=== PATIENT | male | born 1955 | race Caucasian/White ===

== ENCOUNTER → 2017-09-12 10:33 | Outpatient (CLI) | payer BC, SELFPAY ==
--- NOTE | 2017-09-12 10:44 | XR_ITS ---
XR hand LT min 3V COMPARISON: None HISTORY: Left hand pain TECHNIQUE: AP lateral and oblique views FINDINGS: The distal radius and ulna appear intact though there is mild narrowing of the radiocarpal joint. The carpal bones appear normal. The metacarpals and phalanges all appear intact with no evidence of recent or old fracture. There is minor narrowing of the DIP joints of the fingers.. No erosions are seen. The soft tissues are normal. IMPRESSION: Minor osteoarthritic change radiocarpal joint and the DIP joints of the fingers
== END ==
PROVIDERS: PCP Family Medicine; Visit Provider Family Medicine
DX: M79.642 Pain in left hand (principal)
CPT/HCPCS: 73130

== ENCOUNTER → 2017-09-22 07:22 | Outpatient (CLI) | payer BC, SELFPAY ==
--- NOTE | 2017-09-22 07:25 | NM_ITS ---
History and Indications: Hypertension, hyperlipidemia, tobacco use, family history, shortness of breath and palpitations Procedure: Patient exercised on Bob protocol 8 minutes and 32 seconds, resting heart rate was 49 beats per resting blood pressure 160/85, with exercise maximum heart rate achieved was 1 25 bpm which is equal to 80% of the maximum] heart rate and a blood pressure was 180/90. Test was started due to shortness of breath patient denied any complained of chest pain. Patient has good exercise capacity achieved 10.1mets of workload on treadmill, the blood pressure response to exercise was adequate. Patient did not achieve the target heart rate. Electrocardiogram: Resting electrocardiogram showed sinus bradycardia, with exercise there is less than 1.[address] segment depression noted from the baseline EKG. The EKG portion of the exercise Myoview is nondiagnostic as patient did not achieve the target heart rate. Cardiac stress and resting SPECT images: Cardiac stress and rest SPECT images were obtained using technetium 99 Myoview 31.0 mCi at stress, and 9.9 mCi at rest. Gated SPECT further analysis of segmental wall motion and calculation of the ejection fraction also done. Cardiac stress and rest SPECT images show uniform myocardial activity without any segmental perfusion abnormality, computer derived ejection fraction is 60% with no obvious regional wall motion abnormality, right ventricle is normal size and contractility. Conclusion: 1. The EKG portion of the exercise Myoview is nondiagnostic as patient did not heart rate, patient has good exercise capacity achieved 10.1mets of workload on treadmill, the blood pressure response to exercise was adequate, there was no exercise-induced chest discomfort. 2. No obvious scintigraphic evidence of reversible ischemia seen at this level of exercise, computer derived ejection fraction is 60% with no obvious regional wall motion abnormality, right ventricle is normal size and contractility. Patient did not achieve the target heart rate.
--- NOTE | 2017-09-22 12:30 | HMH.ITSHM ---
metoprolol crestor asa
== END ==
PROVIDERS: Family Provider Family Medicine; PCP Family Medicine; Visit Provider Family Medicine
DX: R07.9 Chest pain, unspecified (principal)
CPT/HCPCS: 78452; 93017; A9502

== ENCOUNTER → 2017-11-24 14:56 | Outpatient (CLI) | payer BC, SELFPAY ==
--- NOTE | 2017-11-24 15:19 | CT_ITS ---
CT lung screening EXAM: CT LUNG LOW DOSE WO CONTRAST HISTORY: 61-year-old male with 45 pack-year smoking history asymptomatic ITS.REASON: H/O NICOTINE DEPENDENCE ORDERING PHYSICIAN: Lyndon Lackey MD PATIENT AGE: 61 years COMPARISON: 11/15/2016 TECHNIQUE: The exam was performed on a GE Light Speed [address] scanner using 2.90 mGy CTDI. A low dose helical CT CHEST was performed on a multi-detector scanner. All CT scans at the facility use one or more dose reduction, viz: automated exposure control; ma/kV adjustment per patient size (including targeted exams where dose is matched to indication; i.e. head); or iterative reconstruction technique. The LDCT was performed in a facility that meets the criteria for the screening program. Data regarding this exam was submitted to ACR which is an approved registry. The order for this exam indicates that it came as a result of a lung cancer screening counseling shard decision-making visit that included all the elements required of such a visit including smoking cessation. The radiologist interpreting this exam meets the CMS criteria for the LDCT lung cancer screening program. The exam is reported using the Lung-RADS classification scale and reported to the ACR registry. NOTE: This study was performed for the specific purposes of lung cancer screening and is not an alternative to diagnostic chest CT. RADIATION DOSE: CTDI vol(CT dose Index-volume) = 2.90mG DLP (Dose Length Product) = 106.17 mGcm FINDINGS: There is a 5 mm nodule left lower lobe posteriorly stable since 11/15/2016. A calcified nodule present in the right lung base medially and there is a calcified 5 mm nodule in the right lung base posteriorly laterally. No additional nodules are evident. No effusions or infiltrates. There are extensive coronary artery calcifications. Calcified nodule present in the left lobe of the thyroid gland measuring 15 mm. A 2 cm soft tissue density is present posterior to the root of the aorta and could be due to small amount fluid within superior pericardial recess similar to an older study of 03/25/2015. There are degenerative changes in the thoracic spine. IMPRESSION: 1. Lung RADS Category: 2, benign 2. Other findings: Severe coronary artery calcifications RECOMMENDATIONS: 12 month LDCT follow-up
== END ==
PROVIDERS: Family Provider Family Medicine; PCP Family Medicine; Visit Provider Family Medicine
DX: Z87.891 Personal history of nicotine dependence (principal); Z12.2 Encounter for screening for malignant neoplasm of respiratory organs

== ENCOUNTER 2018-05-17 09:38 | Outpatient (RCR) | payer BC, SELFPAY | END 2018-06-22 16:39 | disposition home or self-care (01) | LOC: PT 09:38 | PROVIDERS: Visit Provider Physician Assistant | DX: Z95.5 Presence of coronary angioplasty implant and graft (principal); R06.02 Shortness of breath | CPT/HCPCS: 93798 ==

== ENCOUNTER → 2018-06-12 08:23 | Outpatient (CLI) | payer BC, SELFPAY ==
[2018-06-12 09:28] LABS: Alanine Aminotransferase 50 U/L (12-78); Alkaline Phosphatase 80 U/L (46-116); Aspartate Amino Transferase 29 U/L (15-37); Bilirubin,Direct 0.2 mg/dL (0.0-0.2); Bilirubin,Indirect 0.4 mg/dL (0.0-0.9); Bilirubin,Total 0.6 mg/dL (0.2-1.0); Chol/HDL Ratio 3.6 (1-3.5); Cholesterol 159 mg/dL (140-200); HDL Cholesterol 44 mg/dL (27-67); LDL Cholesterol 88 mg/dL (0-130); Total Protein,Serum 6.8 gm/dL (6.4-8.2); Triglycerides 135 mg/dL (30-200); VLDL Cholesterol 27 mg/dL (0-40)
== END ==
PROVIDERS: Visit Provider Internal Medicine
DX: I10 Essential (primary) hypertension (principal); E78.5 Hyperlipidemia, unspecified
CPT/HCPCS: 36415; 80061; 80076

== ENCOUNTER → 2018-10-12 07:56 | Outpatient (CLI) | payer BC, SELFPAY ==
[2018-10-12 09:53] LABS: Alanine Aminotransferase 78 U/L (12-78); Alkaline Phosphatase 105 U/L (46-116); Anion Gap 15.4 mEq/L (5-15); Aspartate Amino Transferase 41 U/L (15-37); Bilirubin,Direct 0.1 mg/dL (0.0-0.2); Bilirubin,Indirect 0.2 mg/dL (0.0-0.9); Bilirubin,Total 0.3 mg/dL (0.2-1.0); Blood Urea Nitrogen 18 mg/dL (7-18); Calcium 9.4 mg/dL (8.5-10.1); Carbon Dioxide 26 mmol/L (21.0-32.0); Chloride 104 mmol/L (98-107); Chol/HDL Ratio 3.9 (1-3.5); Cholesterol 139 mg/dL (140-200); Creatinine,Serum 0.88 mg/dL (0.70-1.30); Estimated Glomerular Filt Rate 87 ml/min (>60); GFR (African American) 105 ML/MIN (>60); Glucose 116 mg/dL (74-106); HDL Cholesterol 36 mg/dL (27-67); LDL Cholesterol 62 mg/dL (0-130); Potassium 4.4 mmoL/L (3.5-5.1); Sodium 141 mmol/L (136-145); Triglycerides 204 mg/dL (30-200); VLDL Cholesterol 41 mg/dL (0-40)
== END ==
PROVIDERS: Visit Provider Internal Medicine Cardiovascular Disease
DX: I10 Essential (primary) hypertension (principal); R00.1 Bradycardia, unspecified
CPT/HCPCS: 36415; 80048; 80061; 80076

== ENCOUNTER → 2018-10-31 08:14 | Outpatient (CLI) | payer BC, SELFPAY ==
--- NOTE | 2018-10-31 08:39 | XR_ITS ---
XR ribs RT 2V HISTORY: ITS.REASON: PLEURIDYNIA, RT RIB PAIN ORDERING PHYSICIAN: LORETA Sebastian PATIENT AGE: 62 years Comparison: None FINDINGS: There is a faint lucency along the anterior aspect of the right seventh rib which could be due to a nondisplaced fracture. No other significant anomalies are evident. IMPRESSION: Possible nondisplaced right seventh rib fracture
--- NOTE | 2018-10-31 08:39 | XR_ITS ---
XR chest 2V HISTORY: ITS.REASON: PLEURIDYNIA, RT RIB PAIN ORDERING PHYSICIAN: LORETA Sebastian PATIENT AGE: 62 years COMPARISON: PA and lateral chest 06/09/2018 FINDINGS: The cardiomediastinal silhouette and pulmonary vascularity are within normal limits. The lungs are clear without infiltrates, suspicious nodules, or pleural effusions. No acute bony abnormalities. IMPRESSION: Negative chest, no acute finding
[2018-10-31 08:57] LABS: Basophils # 0.1 K/mm3 (0-0.2); Eosinophils # 0.2 K/mm3 (0.0-0.4); Hematocrit 44.4 % (42.0-52.0); Lymphocytes # 2.2 K/mm3 (0.7-4.5); Lymphocytes % 39.2 % (10-50); Mean Corpuscular HGB Conc 33.7 g/dL (31.8-35.4); Mean Corpuscular Hemoglobin 31.2 pg (27.0-31.2); Mean Corpuscular Volume 92.5 fl (80-94); Mean Platelet Volume 6.9 fl (7.4-10.4); Monocytes # 0.5 K/mm3 (0.1-1.0); Monocytes % 8.3 % (1.7-9.3); Neutrophils # 2.7 K/mm3 (1.8-7.8); Neutrophils % 48.5 % (37.0-80.0); Platelet Count 264 K/mm3 (142-424); Red Blood Count 4.81 M/mm3 (4.60-6.20); White Blood Count 5.6 K/mm3 (4.8-10.8)
--- NOTE | 2018-10-31 09:00 | XR_ITS ---
XR knee RT 3V HISTORY: ITS.REASON: Right knee pain ORDERING PHYSICIAN: LORETA Sebastian PATIENT AGE: 62 years COMPARISON: None FINDINGS: No fracture or dislocation. No lytic or blastic change. Normal mineralization. No significant arthritic changes evident. No other significant findings IMPRESSION: Negative Knee
[2018-10-31 09:45] LABS: Hemoglobin A1C 5.8 % (0.0-7.0)
[2018-10-31 11:01] LABS: Alanine Aminotransferase 42 U/L (12-78); Albumin Level 3.9 gm/dL (3.4-5.0); Albumin/Globulin Ratio 1.3 (1.1-1.8); Alkaline Phosphatase 75 U/L (46-116); Anion Gap 12.6 mEq/L (5-15); Bilirubin,Total 0.5 mg/dL (0.2-1.0); Blood Urea Nitrogen 19 mg/dL (7-18); Calcium 9.3 mg/dL (8.5-10.1); Carbon Dioxide 28 mmol/L (21.0-32.0); Chloride 103 mmol/L (98-107); Chol/HDL Ratio 3.7 (1-3.5); Cholesterol 121 mg/dL (140-200); Creatinine,Serum 0.99 mg/dL (0.70-1.30); Estimated Glomerular Filt Rate 76 ml/min (>60); GFR (African American) 92 ML/MIN (>60); Glucose 88 mg/dL (74-106); HDL Cholesterol 33 mg/dL (27-67); LDL Cholesterol 64 mg/dL (0-130); Sodium 139 mmol/L (136-145); T4 (Thyroxine) 6.8 ug/dl (4.7-13.3); Thyroid Stimulating Hormone 1.69 uIU/ml (0.358-3.740); Total Protein,Serum 6.9 gm/dL (6.4-8.2); Triglycerides 121 mg/dL (30-200); VLDL Cholesterol 24 mg/dL (0-40)
[2018-10-31 11:45] LABS: Potassium 4.6 mmoL/L (3.5-5.1)
[2018-10-31 11:46] LABS: Aspartate Amino Transferase 26 U/L (15-37)
[2018-11-01 10:07] LABS: PSA, Free 0.28 ng/mL; Prostate Specific Ag 0.8 ng/mL (0.0-4.0); Vitamin D 25 Hydroxy 21.5 ng/mL (30.0-100.0)
== END ==
PROVIDERS: Physician Assistant; Visit Provider Physician Assistant
DX: M25.561 Pain in right knee (principal); R23.8 Other skin changes; E78.2 Mixed hyperlipidemia; R07.81 Pleurodynia
CPT/HCPCS: 36415; 71046; 71100; 73562; 80053; 80061; 82652; 83036; 84153; 84154; 84436; 84443; 85025

== ENCOUNTER → 2018-12-26 08:38 | Outpatient (POV) | payer MEDICARE, BC, SELFPAY | PROVIDERS: Visit Provider Dermatology | DX: Z00.00 Encounter for general adult medical examination without abnormal findings (principal) ==

== ENCOUNTER → 2019-01-11 08:10 | Outpatient (CLI) | payer MEDICARE, SELFPAY ==
[2019-01-11 09:21] LABS: Alanine Aminotransferase 51 U/L (12-78); Albumin Level 3.6 gm/dL (3.4-5.0); Alkaline Phosphatase 74 U/L (46-116); Anion Gap 11.3 mEq/L (5-15); Aspartate Amino Transferase 31 U/L (15-37); Bilirubin,Direct 0.2 mg/dL (0.0-0.2); Bilirubin,Indirect 0.3 mg/dL (0.0-0.9); Bilirubin,Total 0.5 mg/dL (0.2-1.0); Blood Urea Nitrogen 25 mg/dL (7-18); Carbon Dioxide 31 mmol/L (21.0-32.0); Chloride 103 mmol/L (98-107); Chol/HDL Ratio 3.4 (1-3.5); Cholesterol 112 mg/dL (140-200); Creatinine,Serum 1.21 mg/dL (0.70-1.30); Estimated Glomerular Filt Rate 60 ml/min (>60); GFR (African American) 73 ML/MIN (>60); Glucose 99 mg/dL (74-106); HDL Cholesterol 33 mg/dL (27-67); LDL Cholesterol 57 mg/dL (0-130); Potassium 4.3 mmoL/L (3.5-5.1); Sodium 141 mmol/L (136-145); Total Protein,Serum 6.2 gm/dL (6.4-8.2); Triglycerides 111 mg/dL (30-200); VLDL Cholesterol 22 mg/dL (0-40)
== END ==
PROVIDERS: Visit Provider Internal Medicine Cardiovascular Disease
DX: E55.9 Vitamin D deficiency, unspecified (principal); E66.9 Obesity, unspecified; E78.01 Familial hypercholesterolemia; I10 Essential (primary) hypertension; I25.10 Atherosclerotic heart disease of native coronary artery without angina pectoris
CPT/HCPCS: 36415; 80048; 80061; 80076

== ENCOUNTER 2019-09-04 13:42 | Observation (INO) ==
[2019-09-04 14:10] LABS: Basophils # 0.1 K/mm3 (0-0.2); Basophils % 0.9 % (0.1-2.0); Eosinophils # 0.2 K/mm3 (0.0-0.4); Eosinophils % 2.3 % (0.1-12.0); Hematocrit 49.4 % (42.0-52.0); Hemoglobin 16.2 g/dL (14.1-18.0); Lymphocytes # 2.9 K/mm3 (0.7-4.5); Lymphocytes % 43.3 % (10-50); Mean Corpuscular HGB Conc 32.8 g/dL (31.8-35.4); Mean Corpuscular Volume 93.1 fl (80-94); Mean Platelet Volume 7.1 fl (7.4-10.4); Monocytes # 0.8 K/mm3 (0.1-1.0); Monocytes % 11.3 % (1.7-9.3); Neutrophils # 2.8 K/mm3 (1.8-7.8); Neutrophils % 42.3 % (37.0-80.0); Platelet Count 285 K/mm3 (142-424); Red Blood Count 5.31 M/mm3 (4.60-6.20); Red Cell Distribution Width 13.1 % (11.5-17.5); White Blood Count 6.7 K/mm3 (4.8-10.8)
[2019-09-04 14:18] LABS: Calcium 10.4 mg/dl (8.4-10.2)
[2019-09-04 14:45] LABS: Albumin Level 4.5 g/dl (3.5-5.0); Bilirubin,Indirect 0.5 mg/dL (0.0-0.9); Bilirubin,Total 0.5 mg/dl (0.2-1.3); Bilirubin,Unconjugated 0.6 mg/dL (0.0-1.1); Total Protein,Serum 7.3 g/dl (6.3-8.2)
--- NOTE | 2019-09-04 17:18 | Emergency Department Note ---
ED Disposition Clinical Impression: Atypical chest pain Disposition: Admitted as Observation Condition on Discharge: Good Additional Instructions: Spoke to Dr. Fitch and he agreed to put the patient in the hospital and have catheterization tomorrow morning. Spoke with Dr. Borrego and he agreed to admit the patient. Spoke to Dr. Borrego Referrals: Rosi Gaston PA [Primary Care Provider] - - Critical Care Critical Care Time: No Attestation: On 09/04/19, the high probability of a clinically significant, sudden or life threatening deterioration of the following system(s) required my full and direct attention, intervention and personal management. The time I documented below is in addition to time spent performing reported procedures but includes the following listed in this critical care notation. Medical Decision Making - Medical Records Medical records reviewed: Yes: I reviewed the patient's medical records. - Jean Marie Inquiry Pt receiving controlled substance: No Vital Signs: 09/04/19 13:43 09/04/19 14:07 09/04/19 15:08 Temperature 98.3 F Temperature Source Oral Pulse Rate [Left Radial] 49 L 49 L 76 Respiratory Rate 16 18 18 Blood Pressure [Right Arm] 167/94 H 165/90 H 121/83 Blood Pressure Mean [Right Arm] 118 115 95 Blood Pressure Source [Right Arm] Automatic Cuff Blood Pressure Position [Right Arm] Sitting Supine 02 Sat by Pulse Oximetry 98 99 97 Oxygen Delivery Method Room Air 09/04/19 15:54 09/04/19 16:29 09/04/19 16:47 Temperature Temperature Source Pulse Rate [Left Radial] 48 L 50 L 78 Respiratory Rate 18 18 18 Blood Pressure [Right Arm] 118/82 124/78 162/74 H Blood Pressure Mean [Right Arm] 94 93 103 Blood Pressure Source [Right Arm] Automatic Cuff Automatic Cuff Automatic Cuff Blood Pressure Position [Right Arm] Supine Supine Supine 02 Sat by Pulse Oximetry 98 98 99 Oxygen Delivery Method Room Air - Lab Data Lab results reviewed: Yes: I reviewed the patient's lab results. Lab Results 09/04/19 13:54: WBC 6.7, RBC 5.31, Hgb 16.2, Hct 49.4, MCV 93.1, MCH 30.5, MCHC 32.8, RDW 13.1, Plt Count 285, MPV 7.1 L, Neut % (Auto) 42.3, Lymph % (Auto) 43.3, [place] % (Auto) 11.3 H, Eos % (Auto) 2.3, Baso % (Auto) 0.9, Neut # (Auto) 2.8, Lymph # (Auto) 2.9, [place] # (Auto) 0.8, Eos # (Auto) 0.2, Baso # (Auto) 0.1 09/04/19 13:54: Sodium 139, Potassium 4.0, Chloride 103, Carbon Dioxide 27, [place] 13.0, BUN 21 H, Creatinine 0.90, Estimated Creat Clear 99, Estimated GFR 85, Est GFR ( Amer) 102, Glucose 81, Calcium 10.4 H, Troponin I 0.02 09/04/19 13:54: Total Bilirubin 0.5, Direct Bilirubin 0.0, Conjugated Bilirubin 0.0, Indirect Bilirubin 0.5, Unconjugated Bilirubin 0.6, AST 42, ALT 43, Alkaline Phosphatase 76, Total Protein 7.3, Albumin 4.5 09/04/19 16:25: Troponin I 0.15 H Result diagrams: 09/04/19 13:54 09/04/19 13:54 Orders (Tests/Meds): ED MEDICATIONS Generic Name Dose Route Start Last Admin Trade Name Freq PRN Reason Stop Dose Admin Sodium Chloride 8 ml 09/04/19 16:14 09/04/19 16:15 Sodium Chloride 0.9% 10ml Vial IV 10/04/19 16:13 8 ml NEEDED PRN Administration dilute pepcid Discontinued Medications Generic Name Dose Route Start Last Admin Trade Name Freq PRN Reason Stop Dose Admin Aspirin 243 mg 09/04/19 14:06 09/04/19 14:07 Aspirin 81mg Chewable Tablet PO 09/04/19 14:07 243 mg ONCE ONE Administration Famotidine 20 mg 09/04/19 16:14 09/04/19 16:15 Pepcid 20mg/2ml Vial IV 09/04/19 16:15 20 mg ONCE ONE Administration ORDERS Category Date Time Status Troponin I Q3H Lab 09/04/19 20:00 Ordered - Radiology Data #1 Image(s): Chest Preliminary Findings: Normal/NAD - ECG Data Tracing #1 Normal Sinus Rhythm: Yes Medical Decision Narrative: Patient's first troponin was 0.02 the troponin repeated 2 hours later was 0.15. Chest Pain HPI - General Chief Complaint: Chest Pain Stated Complaint: chest pain Time Seen by Provider: 09/04/19 17:00 Mode of Arrival: Ambulatory Source of Information: Patient Limitations: No Limitations Description of Symptoms (Recalled from ER Triage Doc. by RN): to ed per pvt car with c/o chest pain radiating lt arm and tightness in neck. +diaphoresis, +nausea. pt states he was walking around [employer] when pain started 20 mins ago. cpta asa 81mg - History of Present Illness HPI narrative: 63-year-old gentleman comes in complaining of substernal chest pain. He states the pain started yesterday then went away and then it started about 45 minutes to presentation here in the ED. He describes the pain almost as a burning/pressure sensation. He rates his pain 3 out of 10. He denies any radiation or shortness of breath. He also denies any diaphoresis. He states alleviating factors are fluids and exacerbating factors are movement. He does have hypertension and hyperlipidemia. He also has known coronary artery disease. He did have 3 stents placed in April 2018. Dr. Fitch did his catheterization. Patient denies any cough. Patient also denies any fevers. - Related Data Home Medications Medication Instructions Recorded Confirmed aspirin 81 mg tablet,delayed 81 mg PO DAILY 05/11/18 09/04/19 release Clopidogrel Bisulfate [Plavix 75mg 75 mg PO DAILY 09/04/19 09/04/19 Tab] Ezetimibe See Rx Instructions .ROUTE .COMPLEX 09/04/19 09/04/19 Losartan/Hydrochlorothiazide 1 tab PO DAILY 09/04/19 09/04/19 [Hyzaar 100-25 Tablet] Metoprolol Succinate 50 mg PO DAILY 09/04/19 09/04/19 Rosuvastatin Calcium 20 mg PO DAILY 09/04/19 09/04/19 Previous Rx's Medication Instructions Recorded fenofibric acid (choline) 45 mg 45 mg PO DAILY #90 cap 03/14/19 capsule,delayed release Allergies Allergy/AdvReac Type Severity Reaction Status Date / Time No Known Allergies Allergy Verified 06/14/19 09:50 [facility] History - Hepatitis A Screen Drug use history?: No High risk sexual behaviors?: No History of sexually transmitted infection?: No Currently employed?: No Childcare worker?: No Do you have indoor plumbing?: Yes Do you have electricity?: Yes Attestation statement:: This patient has been screened for Hepatitis A risk factors. I have reviewed the patient's past medical history: Yes Medical History: Reports:: Coronary Artery Disease, Hyperlipidemia, Hypertension Denies:: Cancer, Diabetes Mellitus Type 1, Diabetes Mellitus Type 2, Internal Pacemaker, MRSA, Seizures Laterality Cases: Bilateral: Tonsillectomy Other Surgeries: Yes: Cardiac Catheterization, Coronary Stent. No: Pacemaker Amputation: No Fractures: No - Social History Smoking Status: Former smoker Tobacco Type: cigarettes Alcohol Intake: never Alcohol Intake Frequency:: 3 or more drinks per day Substance Use Type: denies use Occupational Status: other Housing: house Household Members: spouse Family Hx:: Coronary Artery Disease, Heart Attack, Cancer, Hypertension Comment: Father-CAD/CABG@40's. Mother-HTN,HLD, LUNG CANCER. Brother- of [place] at 52. All Siblings have CAD ROS Obtained: Yes All systems reviewed & no additional complaints - Constitutional Constitutional: Reports system reviewed and no additional complaints, except as docu - Eyes Eyes: Reports system reviewed and no additional complaints, except as docu, Denies blind spots - ENT Ears, Nose, Mouth, and Throat: Reports system reviewed and no additional complaints, except as docu - Cardiovascular Cardiovascular: Reports system reviewed and no additional complaints, except as docu - Respiratory Respiratory: Yes system reviewed and no additional complaints, except as docu - Gastrointestinal Gastrointestingal: Reports: system reviewed and no additional complaints, except as docu - Genitourinary Male Genitourinary: Reports system reviewed and no additional complaints, except as docu Female Genitourinary: Reports system reviewed and no additional complaints, except as docu - Musculoskeletal Musculoskeletal: Reports system reviewed and no additional complaints, except as docu - Integumentary/Breasts Skin/Breast: Reports system reviewed and no additional complaints, except as docu - Neurologic Neurologic: Reports system reviewed and no additional complaints, except as docu - Endocrine Endocrine: Reports system reviewed and no additional complaints, except as docu - Hematologic/Lymphatic Henatologic/Lymphatic: Reports system reviewed and no additional complaints, except as docu - Allergic/Immunologic Allergic/Immunologic: Reports system reviewed and no additional complaints, except as docu Physical Exam - General General appearance: alert, in no apparent distress - Head Head exam: atraumatic, normocephalic - Eye Eye exam: Present: normal appearance, PERRL - ENT ENT exam: Present: normal exam - Neck Neck exam: Present: normal inspection - Chest Chest inspection: Present: normal inspection - Respiratory Respiratory exam: Present: normal lung sounds bilaterally - Cardiovascular Cardiovascular exam: Present: regular rate, normal rhythm - Abdominal Exam Abdominal exam: Present: soft - Extremities Exam Extremities exam: Present: normal inspection - Back Exam Back exam: Present: normal inspection - Neurological Exam Neurological exam: Present: alert, oriented X3 - Psychiatric Psychiatric exam: Present: normal affect - Skin Skin exam: Present: warm - Lymphatic Lymphatic Findings: no adenopathy
--- NOTE | 2019-09-04 21:25 | History & Physical Report ---
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 +d iaphoresis, +nausea. pt states he was walking around [employer] when pain started 20 mins ago. 63-year-old gentleman comes in complaining of substernal chest pain. He states the pain started yesterday then went away and then it started about 45 minutes to presentation here in the ED. He describes the pain almost as a burning/pressure sensation. He rates his pain 3 out of 10. He denies any radia tion or shortness of breath. He also denies any diaphoresis. He states alleviating factors are fluids and exacerbating factors are movement. He does have hypertension and hyperlipidemia. He also has known coronary artery disease. He did have 3 stents placed in April 2018. Dr. Fitch did his catheterization. Patient denies any cough. Patient also denies any fevers. pt was admitted for [facility] History I have reviewed the patient's past medical history: Yes Medical History: Reports:: Cancer ([employer] [place] [id number]), Coronary Artery Disease, Hyperlipidemia, Hypertension Denies:: Diabetes Mellitus Type 1, Diabetes Mellitus Type 2, Internal Pacemaker, MRSA, Seizures *Have you ever received a pneumonia vaccine?: No *Have you received a flu vaccine this season?: Yes Other Medical History: Reports: Sinus Problems Laterality Cases: Bilateral: Tonsillectomy, Other Other Surgeries: Yes: Cardiac Catheterization, Colonoscopy, Coronary Stent, Skin Cancer Excision. No: Pacemaker Amputation: No Fractures: No - *Social History Smoking Status: Former smoker Tobacco Type: cigarettes Alcohol Intake: current Alcohol Intake Frequency:: a few times a week Substance Use Type: denies use *Occupational Status:: employed Housing: house Household Members: spouse *Travel in the last 8 weeks: None Family Hx:: Cancer, Coronary Artery Disease, Hyperlipidemia, Hypertension Review of Systems - Review of Systems Review of systems:: pertinent systems reviewed and negative unless documented below - Constitutional Denies headache(s) - Eyes Denies change in vision - ENT Denies sore throat - *Cardiovascular Reports chest pain at rest, Reports radiating jaw, neck or arm pain - *Respiratory Denies cough - *Gastrointestinal Denies abdominal pain - *Genitourinary Denies blood in urine - *Musculoskeletal Denies joint pain - Integumentary/Breasts Denies rash - *Neurologic Denies seizure-like activity - Psychiatric Denies irritability Meds Home Medications Medication Instructions Recorded Confirmed Type aspirin 81 mg tablet,delayed 81 mg PO DAILY 05/11/18 09/04/19 History release fenofibric acid (choline) 45 mg 45 mg PO DAILY #90 cap 03/14/19 09/04/19 Rx capsule,delayed release Clopidogrel Bisulfate [Plavix 75mg 75 mg PO DAILY 09/04/19 09/04/19 History Tab] Ezetimibe 10 mg PO DAILY 09/04/19 09/05/19 History Losartan/Hydrochlorothiazide 1 tab PO DAILY 09/04/19 09/05/19 History [Hyzaar 100-25 Tablet] Metoprolol Succinate 50 mg PO DAILY 09/04/19 09/04/19 History Rosuvastatin Calcium 20 mg PO DAILY 09/04/19 09/04/19 History Allergies Allergy/AdvReac Type Severity Reaction Status Date / Time No Known Allergies Allergy Verified 06/14/19 09:50 Exam Vital signs and Labs for Last 24 Hours: Temp Pulse Resp BP Pulse Ox 97.7 F 50 L 16 136/70 97 09/04/19 19:20 09/04/19 19:20 09/04/19 19:20 09/04/19 19:20 09/04/19 19:20 Laboratory Results - last 24 hr 09/04/19 13:54: WBC 6.7, RBC 5.31, Hgb 16.2, Hct 49.4, MCV 93.1, MCH 30.5, MCHC 32.8, RDW 13.1, Plt Count 285, MPV 7.1 L, Neut % (Auto) 42.3, Lymph % (Auto) 43.3, [place] % (Auto) 11.3 H, Eos % (Auto) 2.3, Baso % (Auto) 0.9, Neut # (Auto) 2.8, Lymph # (Auto) 2.9, [place] # (Auto) 0.8, Eos # (Auto) 0.2, Baso # (Auto) 0.1 09/04/19 13:54: Sodium 139, Potassium 4.0, Chloride 103, Carbon Dioxide 27, Anion Gap 13.0, BUN 21 H, Creatinine 0.90, Estimated Creat Clear 99, Estimated GFR 85, Est GFR ( Amer) 102, Glucose 81, Calcium 10.4 H, Troponin I 0.02 09/04/19 13:54: Total Bilirubin 0.5, Direct Bilirubin 0.0, Conjugated Bilirubin 0.0, Indirect Bilirubin 0.5, Unconjugated Bilirubin 0.6, AST 42, ALT 43, [place]kal ine Phosphatase 76, Total Protein 7.3, Albumin 4.5 09/04/19 16:25: Troponin I 0.15 H I & O for Last 24 hours: Intake & Output 09/02/19 09/03/19 09/04/19 09/05/19 11:59 11:59 11:59 11:59 Weight 217 lb 3 oz - Constitutional no acute distress, obese - *Routine HEENT Exam Head: Present: normocephalic Eye: Present: EOMI, PERRL ENT: Present: mucous membranes dry - *Routine Neck Exam Present: supple - *Routine Respiratory Exam Present: CTA bilaterally - *Routine Cardiovascular Exam Present: RRR, murmur - *Routine Abdominal Exam Present: soft - *Routine Skin Exam Present: intact - *Routine Neurological Exam Present: alert, oriented X3, CN II-XII intact - Routine Psychiatric Exam Present: normal affect Assessment and Plan (1) Chest pain Current visit: No Status: Acute Qualifiers: Chest pain type: precordial pain Qualified Code(s): R07.2 - Precordial pain Category: Medical Code(s): R07.9 - Chest pain, unspecified (2) Obesity (BMI 30.0-34.9) Current visit: No Status: Acute Category: Medical Code(s): E66.9 - Obesity, unspecified (3) CAD (coronary artery disease) Current visit: No Status: Chronic Qualifiers: Coronary Disease-Associated Artery/Lesion type: [place] artery [place] vs. transplanted heart: [place] heart Associated angina: without angina Qualified Code(s): I25.10 - Atherosclerotic heart disease of [place] coronary artery without angina pectoris Category: Medical Code(s): I25.10 - Atherosclerotic heart disease of [place] coronary artery without angina pectoris
--- NOTE | 2019-09-05 07:52 | Pharmacy Consult Notes ---
[facility] Pharmacy VTE Monitoring - Patient Demographics Admission date: 09/04/19 Report Date: 09/05/19 Time: 07:52 Allergies/Adverse Reactions: Patient Allergies No Known Allergies Allergy (Verified 06/14/19 09:50) Height: 1.8 m Weight: 97.692 kg Patient Problems: Current Active Problems Atypical chest pain (Acute) - VTE Risk Labs: VTE Related Lab Results Hgb 16.2 g/dL (14.1-18.0) 09/04/19 13:54 Hct 49.4 % (42.0-52.0) 09/04/19 13:54 Plt Count 285 K/mm3 (142-424) 09/04/19 13:54 BUN 21 mg/dl (9-20) H 09/04/19 13:54 Creatinine 0.90 mg/dl (0.66-1.25) 09/04/19 13:54 Estimated Creat Clear 99 mL/min (50-200) 09/04/19 13:54 Was VTE Risk Assessment Performed: Yes VTE Score: 3 VTE Risk Level: Low Risk Clinical Trial Participant: No - Prophylaxis VTE Prophylaxis Ordered?: Yes Types of VTE Prophylaxis: TEDS Knee High
--- NOTE | 2019-09-05 08:15 | Cardiology Report ---
APPROVED REPORT EXAM: Comprehensive 2D, Doppler, and color-flow Echocardiogram Office Assistant: Amber Shah CRT Ht: 5 ft 11 in Wt: 217lbs BSA: 2.18 BP: 136/70 mmHg Indications: Hyperlipidemia, Hypertension/HDD stents 2D Dimensions LVOT 2.06 cm (M/F) 1.5-2.5 M-Mode Dimensions RVDd 3.14 cm (0.9-2.6)LVDd 4.66 cm (3.5-5.7) LVDs 2.74 cm (3.5-5.7)IVSd 1.52 cm (0.6-1.1) PWd 0.87 cm (0.6-1.1)EF (Teich) 72.10% FS 41.20% EDV (Teich) 100.30 mL ESV (Teich) 28.00 mL LV Diastology E/A Ratio 1.13 Mitral Valve MV A Velocity 55.00 (40-130 cm/s) Left Ventricle Left atrium is mildly enlarged, left ventricle is normal size, mild concentric left ventricular hypertrophy, visually estimated ejection fraction 55% with no regional wall motion abnormality, endocardial surfaces are poorly visualized, diastolic parameters are inconclusive. Right Ventricle Right atrium is normal size, right ventricle is mildly enlarged with normal contractility. Aortic Valve Aortic valve is minimally thickened and fibrosed, there is no aortic stenosis or aortic insufficiency. Mitral Valve Mitral valve is grossly normal, there is mild mitral regurgitation. Tricuspid Valve Tricuspid valve is grossly normal, there is mild tricuspid regurgitation. Tricuspid regurgitation jet velocity is inadequate for calculation of the right ventricular systolic pressure. Pulmonic Valve Pulmonic valve is poorly visualized. Great Vessels Aortic root is normal size. Pericardium No significant pericardial effusion noted. Conclusion 1. Mildly enlarged left atrium, normal left ventricular size, mild concentric left ventricular hypertrophy, visually estimated ejection fraction 55% with no regional wall motion abnormality, diastolic parameters are inconclusive. Endocardial surfaces are poorly visualized. 2. Mildly enlarged right ventricle with normal contractility. 3. Mild mitral and tricuspid regurgitation. 4. No significant pericardial effusion noted. Electronically signed by : Brad Gauthier, 09/05/2019 08:14:38
--- NOTE | 2019-09-05 09:13 | Consult Report ---
History of Present Illness Consult date: 09/05/19 Requesting physician: Landen Borrego Consult reason: chest pain Chief complaint: chest pain Additional Medical History:: 1. CAD 2. HTN 3. HLD History of present illness: This is a 63-year-old white gentleman who presented to the emergency department with complaints of chest pain. He states that he was walking around [facility], [place] yesterday when he had sudden onset of substernal chest pain. He describes this as a pressure sensation that radiated up to his neck and down his left arm. He denies any associated shortness of breath. However he did have associated diaph oresis and nausea but no vomiting. The patient states the pain persisted for approximately 20 minutes and then he decided to come to the emergency department. The patient states that the pain was severe and nothing was helping to improve the pain. He states that he felt like something was really wrong and that is why he came to the emergency department. Patient has known coronary artery disease with stenting in 2018. He also has known hypertension and hyperlipidemia. He denies any shortness of breath, edema, fever, chills, vomiting, diarrhea, PND or orthopnea. He denies any cough or fevers. He denies any flulike symptoms. The patient was admitted to the hospital as he did have a bump in his troponin consistent with a non-ST elevation myocardial infarction. The patient is bradycardic this morning. He states that he is always bradycardic since 2018. He states his heart rate is usually anywhere from 41 to 48 bpm. He denies any syncope. [facility] History I have reviewed the patient's past medical history: Yes Medical History: Reports:: Cancer ([employer] [id number]), Coronary Artery Disease, Hyperlipidemia, Hypertension Denies:: Diabetes Mellitus Type 1, Diabetes Mellitus Type 2, Internal Pacemaker, MRSA, Seizures *Have you ever received a pneumonia vaccine?: No *Have you received a flu vaccine this season?: Yes Other Medical History: Reports: Sinus Problems Laterality Cases: Bilateral: Tonsillectomy, Other Other Surgeries: Yes: Cardiac Catheterization, Colonoscopy, Coronary Stent, Skin Cancer Excision. No: Pacemaker Amputation: No Fractures: No - *Social History Smoking Status: Former smoker Tobacco Type: cigarettes Alcohol Intake: current Alcohol Intake Frequency:: a few times a week Substance Use Type: denies use *Occupational Status:: employed Housing: house Household Members: spouse *Travel in the last 8 weeks: None Family Hx:: Cancer, Coronary Artery Disease, Hyperlipidemia, Hypertension Meds Home Medications Medication Instructions Recorded Confirmed Type aspirin 81 mg tablet,delayed 81 mg PO DAILY 05/11/18 09/04/19 History release fenofibric acid (choline) 45 mg 45 mg PO DAILY #90 cap 03/14/19 09/04/19 Rx capsule,delayed release Clopidogrel Bisulfate [Plavix 75mg 75 mg PO DAILY 09/04/19 09/04/19 History Tab] Ezetimibe 10 mg PO DAILY 09/04/19 09/05/19 History Losartan/Hydrochlorothiazide 1 tab PO DAILY 09/04/19 09/05/19 History [Hyzaar 100-25 Tablet] Metoprolol Succinate 50 mg PO DAILY 09/04/19 09/04/19 History Rosuvastatin Calcium 20 mg PO DAILY 09/04/19 09/04/19 History Allergies Allergy/AdvReac Type Severity Reaction Status Date / Time No Known Allergies Allergy Verified 06/14/19 09:50 Review of Systems - Review of Systems Review of systems:: pertinent systems reviewed and negative unless documented below - *Cardiovascular Reports chest pain, Reports chest pain at rest, Reports chest pain with activity, Reports radiating jaw, neck or arm pain - *Gastrointestinal Reports nausea - *Neurologic Denies headache(s), Denies seizure-like activity Exam Vital signs and Labs for Last 24 Hours: Temp Pulse Resp BP Pulse Ox 97.9 F 50 L 16 141/79 H 99 09/05/19 08:00 09/05/19 08:00 09/05/19 08:00 09/05/19 08:00 09/05/19 08:00 Laboratory Results - last 24 hr 09/04/19 13:54: WBC 6.7, RBC 5.31, Hgb 16.2, Hct 49.4, MCV 93.1, MCH 30.5, MCHC 32.8, RDW 13.1, Plt Count 285, MPV 7.1 L, Neut % (Auto) 42.3, Lymph % (Auto) 43.3, [place] % (Auto) 11.3 H, Eos % (Auto) 2.3, Baso % (Auto) 0.9, Neut # (Auto) 2.8, Lymph # (Auto) 2.9, [place] # (Auto) 0.8, Eos # (Auto) 0.2, Baso # (Auto) 0.1 09/04/19 13:54: Sodium 139, Potassium 4.0, Chloride 103, Carbon Dioxide 27, Anion Gap 13.0, BUN 21 H, Creatinine 0.90, Estimated Creat Clear 99, Estimated GFR 85, Est GFR ( Amer) 102, Glucose 81, Calcium 10.4 H, Troponin I 0.02 09/04/19 13:54: Total Bilirubin 0.5, Direct Bilirubin 0.0, Conjugated Bilirubin 0.0, Indirect Bilirubin 0.5, Unconjugated Bilirubin 0.6, AST 42, ALT 43, Alkaline Phosphatase 76, Total Protein 7.3, Albumin 4.5 09/04/19 16:25: Troponin I 0.15 H I & O for Last 24 hours: Intake & Output 09/02/19 09/03/19 09/04/19 09/05/19 23:59 23:59 23:59 23:59 Intake Total 0 / 0 Balance 0 / 0 Weight 217 lb 3 oz 215 lb 6 oz Radiology Reports for the Last 24 Hours: Echo shows: 1. Mildly enlarged left atrium, normal left ventricular size, mild concentric left ventricular hypertrophy, visually estimated ejection fraction 55% with no regional wall motion abnormality, diastolic parameters are inconclusive. Endocardial surfaces are poorly visualized. 2. Mildly enlarged right ventricle with normal contractility. 3. Mild mitral and tricuspid regurgitation. 4. No significant pericardial effusion noted. Narrative: KG is sinus rhythm with a rate of 47. - Constitutional no acute distress, obese - *Routine HEENT Exam Head: Present: normocephalic, atraumatic Eye: Present: EOMI, PERRL ENT: Present: mucous membranes moist - *Routine Neck Exam Present: supple, full ROM, normal carotid upstroke. Absent: JVD, carotid bruit, lymphadenopathy - *Routine Respiratory Exam Present: CTA bilaterally - *Routine Cardiovascular Exam Present: Normal S1, Normal S2, bradycardia. Absent: murmur - *Routine Abdominal Exam Present: soft, normoactive bowel sounds. Absent: tenderness, distended, rebound - *Routine Extremities Exam Present: full ROM, pulses intact, normal capillary refill. Absent: cyanosis, clubbing, edema - *Routine Skin Exam Present: intact, warm. Absent: erythema, rash - *Routine Neurological Exam Present: alert, oriented X3, CN II-XII intact. Absent: sensory deficit, motor deficit - Routine Psychiatric Exam Present: normal affect, normal thought process Assessment and Plan (1) Non-ST elevation myocardial infarction (NSTEMI) Current visit: Yes Status: Acute Category: Medical Code(s): I21.4 - Non-ST elevation (NSTEMI) myocardial infarction (2) Unstable angina Current visit: Yes Status: Acute Category: Medical Code(s): I20.0 - Unstable angina (3) CAD (coronary artery disease) Current visit: No Status: Chronic Qualifiers: Coronary Disease-Associated Artery/Lesion type: [place] artery [place] vs. transplanted heart: [place] heart Associated angina: without angina Qualified Code(s): I25.10 - Atherosclerotic heart disease of [place] coronary artery without angina pectoris Category: Medical Code(s): I25.10 - Atherosclerotic heart disease of [place] coronary artery without angina pectoris (4) Obesity (BMI 30.0-34.9) Current visit: No Status: Chronic Category: Medical Code(s): E66.9 - Obesity, unspecified (5) Bradycardia Current visit: No Status: Chronic Category: Medical Code(s): R00.1 - Bradycardia, unspecified (6) Hyperlipidemia Current visit: No Status: Chronic Qualifiers: Hyperlipidemia type: familial hypercholesterolemia Qualified Code(s): E78.01 - Familial hypercholesterolemia Category: Medical Code(s): E78.5 - Hyperlipidemia, unspecified (7) Hypertension Current visit: No Status: Chronic Qualifiers: Hypertension type: essential hypertension Qualified Code(s): I10 - Essential (primary) hypertension Category: Medical Code(s): I10 - Essential (primary) hypertension - Assessment and plan all Dx Assessment and Plan for all problems:: Plan: 1. Patient mated to the hospital secondary to chest pain. He does have symptoms consistent with unstable angina. The patient does have an elevated troponin consistent with a non-ST elevation myocardial infarction. The patient will undergo left cardiac catheterization today to evaluate his coronary artery disease due to the non-ST elevation myocardial infarction and unstable angina. The patient does have known coronary artery disease with stenting in 2018. 2. The patient has been educated on risks benefits of proceeding with left cardiac catheterization. The patient verbalized understanding and is agreeable in proceeding with the procedure. 3. The patient will remain n.p.o. in preparation for left cardiac catheterization. 4. The patient will get IV fluids and premedications prior to the procedure. 5. Coronary artery disease is present. 6. His blood pressure is well controlled. 7. His LDL goal is less than 55. will get a lipid panel today. 8. The patient is bradycardic. He states that he has been bradycardic since 2018 with his heart rate running anywhere from 41 to 48 bpm. He denies any dizziness or syncope. He takes metoprolol succinate 25 mg p.o. twice daily. Will change metoprolol succinate 25 mg p.o. daily to help with his bradycardia. 9. Further recommendations were made pending patient's response to treatment and the results of his left cardiac catheterization later today. Thank you for the opportunity to participate in the care of this patient.
[2019-09-05 10:11] LABS: Chol/HDL Ratio 4.3 (1-3.5)
--- NOTE | 2019-09-05 18:36 | Progress Note ---
Internal Medicine - PN: Subj *Date: 09/05/19 *Time: 08:30 Interval history: pt states no cp at this time Exam Vital signs and Labs for Last 24 Hours: Temp Pulse Resp BP Pulse Ox 97.9 F 50 L 16 122/77 98 09/05/19 08:00 09/05/19 16:00 09/05/19 12:20 09/05/19 13:20 09/05/19 13:20 Laboratory Results - last 24 hr 09/05/19 09:47: Triglycerides 77, Cholesterol 169, LDL Cholesterol Direct 121.10, VLDL Cholesterol 15, HDL Cholesterol 39 L, Cholesterol/HDL Ratio 4.3 H I & O for Last 24 hours: Intake & Output 09/03/19 09/04/19 09/05/19 09/06/19 11:59 11:59 11:59 11:59 Intake Total 0 / 0 1840 / 1840 Balance 0 / 0 1840 / 1840 Weight 215 lb 6 oz - Constitutional no acute distress - *Routine HEENT Exam Head: Present: normocephalic Eye: Present: PERRL ENT: Present: mucous membranes moist - *Routine Neck Exam Present: supple. Absent: lymphadenopathy - *Routine Respiratory Exam Present: CTA bilaterally - *Routine Cardiovascular Exam Present: RRR - *Routine Abdominal Exam Present: soft, normoactive bowel sounds. Absent: tenderness - *Routine Extremities Exam Present: full ROM. Absent: cyanosis, clubbing, edema - *Routine Skin Exam Present: warm. Absent: rash - *Routine Neurological Exam Present: alert, oriented X3 - Routine Psychiatric Exam Present: normal affect Assessment and Plan (1) Non-ST elevation myocardial infarction (NSTEMI) Current visit: Yes Status: Acute Category: Medical Code(s): I21.4 - Non-ST elevation (NSTEMI) myocardial infarction (2) Unstable angina Current visit: Yes Status: Acute Category: Medical Code(s): I20.0 - Unstable angina (3) CAD (coronary artery disease) Current visit: No Status: Chronic Qualifiers: Coronary Disease-Associated Artery/Lesion type: [place] artery [place] vs. transplanted heart: [place] heart Associated angina: without angina Qualified Code(s): I25.10 - Atherosclerotic heart disease of [place] coronary artery without angina pectoris Category: Medical Code(s): I25.10 - Atherosclerotic heart disease of [place] coronary artery without angina pectoris (4) Obesity (BMI 30.0-34.9) Current visit: No Status: Chronic Category: Medical Code(s): E66.9 - Obesity, unspecified (5) Bradycardia Current visit: No Status: Chronic Category: Medical Code(s): R00.1 - Bra dycardia, unspecified (6) Hyperlipidemia Current visit: No Status: Chronic Qualifiers: Hyperlipidemia type: familial hypercholesterolemia Qualified Code(s): E78.01 - Familial hypercholesterolemia Category: Medical Code(s): E78.5 - Hyperlipidemia, unspecified (7) Hypertension Current visit: No Status: Chronic Qualifiers: Hypertension type: essential hypertension Qualified Code(s): I10 - Essential (primary) hypertension Category: Medical Code(s): I10 - Essential (primary) hypertension - Assessment and plan all Dx Assessment and Plan for all problems:: rounded with dr berumen all orders per dr berumen cath today poss dc later
--- NOTE | 2019-09-05 21:38 | Electrocardiograph Report ---
APPROVED REPORT Exam: Resting ECG HR:47 bpm ECG Measurements Heart Rate 47 AXES SD 174 P 68 QRSd 88 QRS 72 QT 468 T72 QTc 414 <Conclusion> Marked sinus bradycardia Abnormal ECG Electronically signed by : Hebert Knox, 09/05/2019 21:38:25
--- NOTE | 2019-09-06 07:45 | Progress Note ---
Subjective Date: 09/06/19 Time: 07:44 Principal diagnosis: NSTEMI Interval history: 63-year-old white male in bed in no acute distress. Denies any chest pain overnight. Patient's cath results reviewed with explanation regarding no need for intervention at this time. Recommend continuing both aspirin and Plavix for 1 year due to elevated troponins. Patient relates increased alcohol use recently up to 10 beers per day until last 2 weeks. Advised moderation. Exam Vital signs and Labs for Last 24 Hours: Temp Pulse Resp BP Pulse Ox 97.5 F L 50 L 16 102/61 L 100 09/06/19 04:00 09/06/19 04:00 09/06/19 04:00 09/06/19 04:00 09/06/19 04:00 Laboratory Results - last 24 hr 09/05/19 09:47: Triglycerides 77, Cholesterol 169, LDL Cholesterol Direct 121.10, VLDL Cholesterol 15, HDL Cholesterol 39 L, Cholesterol/HDL Ratio 4.3 H I & O for Last 24 hours: Intake & Output 09/03/19 09/04/19 09/05/19 09/06/19 11:59 11:59 11:59 11:59 Intake Total 0 / 0 1840 / 1840 Balance 0 / 0 1840 / 1840 Weight 215 lb 6 oz 218 lb 1 oz - *Routine HEENT Exam Head: Present: normocephalic Eye: Present: EOMI, PERRL ENT: Present: mucous membranes moist - *Routine Respiratory Exam Present: CTA bilaterally. Absent: accessory muscle use, rales, rhonchi, wheezes - *Routine Cardiovascular Exam Present: RRR. Absent: murmur, gallop, rubs - *Routine Abdominal Exam Present: soft. Absent: tenderness, distended, guarding - *Routine Extremities Exam Absent: edema, calf tenderness - *Routine Neurological Exam Present: alert, oriented X3, moving all extremities Progress Note: A&P (1) Non-ST elevation myocardial infarction (NSTEMI) Status: Acute Current Visit: Yes (2) Unstable angina Status: Acute Current Visit: Yes (3) CAD (coronary artery disease) Status: Chronic Current Visit: No (4) Obesity (BMI 30.0-34.9) Status: Chronic Current Visit: No (5) Bradycardia Status: Chronic Current Visit: No (6) Hyperlipidemia Status: Chronic Current Visit: No (7) Hypertension Status: Chronic Current Visit: No (8) Diastolic dysfunction Status: Acute Current Visit: Yes Assessment and Plan for All Diagnoses:: 1. Stable from a cardiovascular standpoint for discharge home with medication changes as noted below. Recommend follow-up in our office in 1 to 2 weeks with BMP and BNP on the day of follow-up. 2. Home medications to include aspirin 81 mg daily, Plavix 75 mg daily, metoprolol succinate 25 mg daily, fenofibric acid 45 mg daily, Crestor 20 mg daily, Zetia 10 mg daily. Will discontinue losartan HCTZ and switch to losartan 50 mg daily along with Lasix 40 mg daily and Aldactone 25 mg daily due to diastolic dysfunction with elevated LVEDP of 20-25 mm Hg. No CHF on CXR.
--- NOTE | 2019-09-06 09:30 | Discharge Summary ---
General - General Admission date:: 09/04/19 Discharge date: 09/06/19 HPI HPI: this wm presented to the ed with ant chest pain with rad to neck - has had episode day block captain and worse episode day of admit - pt has known heart dis o ed per pvt car with c/o chest pain radiating lt arm and tightness in neck. +diaphoresis, +nausea. pt states he was walking around [employer] when pain started 20 mins ago. 63-year-old gentleman comes in complaining of substernal chest pain. He states the pain started yesterday then went away and then it started about 45 minutes to presentation here in the ED. He describes the pain almost as a burning/pressure sensation. He rates his pain 3 out of 10. He denies any radiation or shortness of breath. He also denies any diaphoresis. He states alleviating factors are fluids and exacerbating factors are movement. He does have hypertension and hyperlipidemia. He also has known coronary artery disease. He did have 3 stents placed in April 2018. Dr. Fitch did his catheterization. Patient denies any cough. Patient also denies any fevers. pt was admitted for [facility] Course Hospital Course: pt has did well with elevated card enz - pt was seen bty card -his is a 63-year-old white gentleman who presented to the emergency department with complaints of chest pain. He states that he was walking around [employer] yesterday when he had sudden onset of substernal chest pain. He describes this as a pressure sensation that radiated up to his neck and down his left arm. He denies any associated shortness of breath. However he did have associated diaphoresis and nausea but no vomiting. The patient states the pain persisted for approximately 20 minutes and then he decided to come to the emergency department. The patient states that the pain was severe and nothing was helping to improve the pain. He states that he felt like something was really wrong and that is why he came to the emergency department. Patient has known coronary artery disease with stenting in 2018. He also has known hypertension and hyperlipidemia. He denies any shortness of breath, edema, fever, chills, vomiting, diarrhea, PND or orthopnea. He denies any cough or fevers. He denies any flulike symptoms. The patient was admitted to the hospital as he did have a bump in his troponin consistent with a non-ST elevation myocardial infarction. The patient is bradycardic this morning. He states that he is always bradycardic since 2018. He states his heart rate is usually anywhere from 41 to 48 bpm. He denies any syncope. pt had card cath-HC shows: The left main artery Normal The left anterior descending artery Has an ostial 10 to 20% stenosis followed by a proximal stent which extends throughout the proximal and mid segment in a contiguous manner. The stent has mild in-stent restenosis with excellent proximal and distal transitioning. The circumflex artery Is a codominant vessel and has an ostial smooth 20 to 30% stenosis. The main circumflex artery has mild luminal irregularities while the first obtuse marginal artery has an ostial 40 to 50% stenosis followed by a proximal to mid vessel stent which is widely patent with mild in-stent restenosis The right coronary artery Is a codominant vessel and has proximal to mid vessel 30% stenoses with distal 30% stenoses The HIDALGO ventriculogram reveals Normal 60-65% The left ventricular end-diastolic pressure 20 to 25 mmHg IMPRESSION Coronary disease as described above Elevated EDP consistent with diastolic dysfunction Normal ejection fraction PLAN 1. Medical management Stable from a cardiovascular standpoint for discharge home with medication changes as noted below. Recommend follow-up in our office in 1 to 2 weeks with BMP and BNP on the day of follow-up. 2. Home medications to include aspirin 81 mg daily, Plavix 75 mg daily, metoprolol succinate 25 mg daily, fenofibric acid 45 mg daily, Crestor 20 mg daily, Zetia 10 mg daily. Will discontinue losartan HCTZ and switch to losartan 50 mg daily along with Lasix 40 mg daily and Aldactone 25 mg daily due to diastolic dysfunction with elevated LVEDP of 20-25 mm Hg. No CHF on CXR. pt will see card and pcp for follow up Objective Vital signs: Temp Pulse Resp BP Pulse Ox 98.0 F 51 L 18 119/79 98 09/06/19 08:00 09/06/19 08:00 09/06/19 08:00 09/06/19 08:00 09/06/19 08:00 no acute distress, obese - *Routine HEENT Exam Head: Present: normocephalic Eye: Present: EOMI, PERRL ENT: Present: mucous membranes moist - *Routine Neck Exam Present: supple. Absent: JVD - *Routine Respiratory Exam Present: CTA bilaterally - *Routine Cardiovascular Exam Present: RRR, murmur - *Routine Abdominal Exam Present: soft - *Routine Extremities Exam Present: full ROM, pulses intact - *Routine Skin Exam Present: intact - *Routine Neurological Exam Present: alert, oriented X3, CN II-XII intact - Routine Psychiatric Exam Present: normal affect Results Labs on day of discharge: Labs from last 24 hours 09/05/19 09:47 Triglycerides 77 Cholesterol 169 LDL Cholesterol Direct 121.10 VLDL Cholesterol 15 HDL Cholesterol 39 L Cholesterol/HDL Ratio 4.3 H DS: Diagnosis - Discharge Diagnosis (1) Non-ST elevation myocardial infarction (NSTEMI) Status: Acute (2) Unstable angina Status: Acute (3) CAD (coronary artery disease) Status: Chronic (4) Obesity (BMI 30.0-34.9) Status: Chronic (5) Bradycardia Status: Chronic (6) Hyperlipidemia Status: Chronic (7) Hypertension Status: Chronic (8) Diastolic dysfunction Status: Acute Discharge Plan - Patient Discharge Instructions ACTIVITY: Continue current activity DIET: continue same diet Patient Instructions: Heart Attack, Heart-Healthy Diet, DI for Cardiac Catheterization, DI for Surgical Site Infection, Ticagrelor, Pravastatin - Follow up Plan Follow up with: Oscar Fitch MD [Staff Physician] - Disposition: Home, Self-[facility] Medications: Home Medications Medication Instructions Recorded Confirmed Type aspirin 81 mg tablet,delayed 81 mg PO DAILY 05/11/18 09/04/19 History release fenofibric acid (choline) 45 mg 45 mg PO DAILY #90 cap 03/14/19 09/04/19 Rx capsule,delayed release Clopidogrel Bisulfate [Plavix 75mg 75 mg PO DAILY 09/04/19 09/04/19 History Tab] Ezetimibe 10 mg PO DAILY 09/04/19 09/05/19 History Losartan/Hydrochlorothiazide 1 tab PO DAILY 09/04/19 09/05/19 History [Hyzaar 100-25 Tablet] Metoprolol Succinate 50 mg PO DAILY 09/04/19 09/04/19 History Rosuvastatin Calcium 20 mg PO DAILY 09/04/19 09/04/19 History Losartan Potassium 50 mg PO DAILY #30 tab 09/06/19 Rx Metoprolol Succinate 25 mg PO DAILY #30 tab.er.24h 09/06/19 Rx Rosuvastatin Calcium [Crestor 20 20 mg PO DAILY #30 tab 09/06/19 Rx mg Tablets] Prescriptions/Medication Reconciliation: New Aspirin [Aspirin 81mg chewable tab] 81 mg PO DAILY tab.chew Clopidogrel Bisulfate [Plavix 75mg Tab] 75 mg PO DAILY tablet Rosuvastatin Calcium [Crestor 20 mg Tablets] 20 mg PO DAILY #30 tab Losartan Potassium 50 mg PO DAILY #30 tab Metoprolol Succinate 25 mg PO DAILY #30 tab.er.24h Spironolactone [Aldactone 25mg Tab] 25 mg PO DAILY tablet Furosemide [Lasix 40mg tablet] 40 mg PO DAILY #30 tablet Continued aspirin 81 mg tablet,delayed release 81 mg PO DAILY fenofibric acid (choline) 45 mg capsule,delayed release 45 mg PO DAILY #90 cap Rosuvastatin Calcium 20 mg PO DAILY Ezetimibe 10 mg PO DAILY Clopidogrel Bisulfate [Plavix 75mg Tab] 75 mg PO DAILY Discontinued Metoprolol Succinate 50 mg PO DAILY Losartan/Hydrochlorothiazide [Hyzaar 100-25 Tablet] 1 tab PO DAILY - Problem Reconciliation Problems Reviewed?: Yes
== END 2019-09-06 10:48 | disposition home or self-care (01) ==
LOC: ER 13:42 → 2ND 13:42
PROVIDERS: ADMIT Emergency Medicine; ATTEND Emergency Medicine
CPT/HCPCS: 36415; 71010; 71045; 80048; 80061; 80076; 84484; 85025; 93005; 93306; 93458; 96374; 96375; 99152; 99284; C1725; C1769; G0378; J1644; Q9967

== ENCOUNTER 2019-09-07 06:41 | Observation (INO) ==
[2019-09-07 07:03] LABS: Basophils # 0.1 K/mm3 (0-0.2); Basophils % 1.1 % (0.1-2.0); Eosinophils # 0.2 K/mm3 (0.0-0.4); Eosinophils % 2.6 % (0.1-12.0); Hematocrit 48.6 % (42.0-52.0); Hemoglobin 16.4 g/dL (14.1-18.0); Lymphocytes % 33.3 % (10-50); Mean Corpuscular HGB Conc 33.8 g/dL (31.8-35.4); Mean Corpuscular Volume 92.6 fl (80-94); Mean Platelet Volume 7.3 fl (7.4-10.4); Monocytes # 0.6 K/mm3 (0.1-1.0); Monocytes % 9.7 % (1.7-9.3); Neutrophils # 3.2 K/mm3 (1.8-7.8); Neutrophils % 53.4 % (37.0-80.0); Platelet Count 268 K/mm3 (142-424); Red Blood Count 5.24 M/mm3 (4.60-6.20)
[2019-09-07 07:08] LABS: Anion Gap 11.4 mEq/L (5-15); Calcium 9.9 mg/dl (8.4-10.2)
--- NOTE | 2019-09-07 07:16 | Emergency Department Note ---
ED Disposition Clinical Impression: Unstable angina pectoris due to coronary arteriosclerosis Diastolic dysfunction with heart failure Qualifiers: Heart failure chronicity: acute on chronic Qualified Code(s): I50.33 - Acute on chronic diastolic (congestive) heart failure Disposition: Admitted as Observation Condition on Discharge: Fair Referrals: Rosi Gaston PA [Primary Care Provider] - - Critical Care Critical Care Time: No Attestation: On 09/07/19, the high probability of a clinically significant, sudden or life threatening deterioration of the following system(s) required my full and direct attention, intervention and personal management. The time I documented below is in addition to time spent performing reported procedures but includes the following listed in this critical care notation. Medical Decision Making - Medical Records Medical records reviewed: Yes: I reviewed the patient's medical records. - Jean Marie Inquiry Pt receiving controlled substance: No Vital Signs: 09/07/19 06:42 Temperature 97.5 F L Temperature Source Oral Pulse Rate [Right Brachial] 52 L Respiratory Rate 97 H Blood Pressure [Right Arm] 161/91 H Blood Pressure Mean [Right Arm] 114 Blood Pressure Source [Right Arm] Automatic Cuff Blood Pressure Position [Right Arm] Sitting 02 Sat by Pulse Oximetry 98 Oxygen Delivery Method Room Air - Lab Data Lab results reviewed: Yes: I reviewed the patient's lab results. Lab Results 09/07/19 06:50: WBC 6.0, RBC 5.24, Hgb 16.4, Hct 48.6, MCV 92.6, MCH 31.4 H, MCHC 33.8, RDW 13.0, Plt Count 268, MPV 7.3 L, Neut % (Auto) 53.4, Lymph % (Auto) 33.3, Deuel % (Auto) 9.7 H, Eos % (Auto) 2.6, Baso % (Auto) 1.1, Neut # (Auto) 3.2, Lymph # (Auto) 2.0, Deuel # (Auto) 0.6, Eos # (Auto) 0.2, Baso # (Auto) 0.1 09/07/19 06:50: Sodium 140, Potassium 4.4, Chloride 103, Carbon Dioxide 30, Anion Gap 11.4, BUN 19, Creatinine 1.10 D, Estimated Creat Clear 52, Estimated GFR 67, Est GFR ( Amer) 81 D, Glucose 108 H, Calcium 9.9, Troponin I 0.34 H Result diagrams: 09/07/19 06:50 09/07/19 06:50 Orders (Tests/Meds): ED MEDICATIONS Generic Name Dose Route Start Last Admin Trade Name Freq PRN Reason Stop Dose Admin Sodium Chloride 1,000 mls @ 999 mls/hr 09/07/19 07:15 09/07/19 07:15 Sod Chlor 0.9% 1000ml Bag IV 09/07/19 08:15 999 mls/hr .Q1H1M ARAVIND Administration Discontinued Medications Generic Name Dose Route Start Last Admin Trade Name Freq PRN Reason Stop Dose Admin Aspirin 324 mg 09/07/19 06:55 09/07/19 07:02 Aspirin 81mg Chewable Tablet PO 09/07/19 06:56 324 mg ONCE ONE Administration Nitroglycerin 0.4 mg 09/07/19 06:55 09/07/19 07:02 Nitrostat 0.4mg Sl Tablet SL 09/07/19 06:56 1 tab ONCE ONE Administration Ondansetron HCl 4 mg 09/07/19 07:14 09/07/19 07:15 Zofran 4mg/2ml Vial IV 09/07/19 07:15 4 mg ONCE ONE Administration ORDERS Category Date Time Status XR chest 2V Stat Exams 09/07/19 06:52 Ordered Troponin I Q3H Lab 09/07/19 10:00 Ordered Troponin I Q3H Lab 09/07/19 13:00 Ordered - Radiology Data #1 Image(s): Chest Image Reviewed: Yes I reviewed the patient's radiology image Preliminary Findings: Normal/NAD - ECG Data Tracing #1 Arrhythmias present: sinus daniel Ischemic changes: non-specific ST-T wave changes ECG compared to prior tracings: there are no significant changes - Physician Consults Physician Consulted: lemuel Reason -: Pt condition Chest Pain HPI - General Chief Complaint: Chest Pain Stated Complaint: CP Time Seen by Provider: 09/07/19 06:45 Mode of Arrival: Ambulatory Source of Information: Patient Limitations: No Limitations Description of Symptoms (Recalled from ER Triage Doc. by RN): PT states constant chest pain radiating down left arm pt discharged from hospital yesterday had heart cath 09/04. states pain 07/23 - History of Present Illness HPI narrative: pt with recent admit with heart cath - pt was d/c on meds and had recurrent chest pain this am - pt reports pain like prev - no fever or resp sx - MD complaint: chest pain indicative of cardiac Onset (ago): hour(s) Duration: constant Activity at onset: during rest Pain location: substernal Severity: similar to previous episodes Quality: tightness Associated symptoms: nausea, diaphoresis Risk Factors for CAD: Hypertension, Family Hx of CAD Treatments prior to or on arrival for Cardiac Chest Pain: beta blockers - MARLYN Score for Non-Stemi Age of Patient: 60-69 years old Heart Rate: 50-69 bpm Systolic Blood Pressure: 160-199 mmHg Serum Creatinine: 0.80-1.19 mg/dl CHF [place] Class: I-No CHF Other Risk Factors: Elevated Cardiac Enzymes or Biomarkers Non-Stemi Risk Score: 92 - Related Data Home Medications Medication Instructions Recorded Confirmed aspirin 81 mg tablet,delayed 81 mg PO DAILY 05/11/18 09/04/19 release Clopidogrel Bisulfate [Plavix 75mg 75 mg PO DAILY 09/04/19 09/04/19 Tab] Ezetimibe 10 mg PO DAILY 09/04/19 09/05/19 Rosuvastatin Calcium 20 mg PO DAILY 09/04/19 09/04/19 Previous Rx's Medication Instructions Recorded fenofibric acid (choline) 45 mg 45 mg PO DAILY #90 cap 03/14/19 capsule,delayed release Furosemide [Lasix 40mg tablet] 40 mg PO DAILY #30 tab 09/06/19 Losartan Potassium 50 mg PO DAILY #30 tab 09/06/19 Metoprolol Succinate 25 mg PO DAILY #30 tab.er.24h 09/06/19 Spironolactone [Aldactone 25mg 25 mg PO DAILY 30 Days #30 tab 09/06/19 Tab] Allergies Allergy/AdvReac Type Severity Reaction Status Date / Time No Known Allergies Allergy Verified 06/14/19 09:50 [facility] History - Hepatitis A Screen Drug use history?: No High risk sexual behaviors?: No History of sexually transmitted infection?: No Currently employed?: No Childcare worker?: No Do you have indoor plumbing?: Yes Do you have electricity?: Yes Attestation statement:: This patient has been screened for Hepatitis A risk factors. I have reviewed the patient's past medical history: Yes Medical History: Reports:: Cancer ([employer] [id number]), Coronary Artery Disease, Hyperlipidemia, Hypertension Denies:: Diabetes Mellitus Type 1, Diabetes Mellitus Type 2, Internal Pacemaker, MRSA, Seizures Other Medical History: Reports: Sinus Problems Laterality Cases: Bilateral: Tonsillectomy, Other Other Surgeries: Yes: Cardiac Catheterization, Colonoscopy, Coronary Stent, Skin Cancer Excision. No: Pacemaker Amputation: No Fractures: No - Social History Smoking Status: Former smoker Tobacco Type: cigarettes # Packs/Day (cigarettes): 1 Smoking End Date: 2 years Alcohol Intake: never Alcohol Intake Frequency:: a few times a week Substance Use Type: denies use Occupational Status: employed Housing: house Household Members: spouse Family Hx:: Cancer, Coronary Artery Disease, Hyperlipidemia, Hypertension Comment: Father-CAD/CABG@40's. Mother-HTN,HLD, LUNG CANCER. Brother- of [place] at 52. All Siblings have CAD ROS Obtained: Yes All systems reviewed & no additional complaints - Constitutional Constitutional: Denies fever(s) - Eyes Eyes: Denies change in vision - ENT Ears, Nose, Mouth, and Throat: Denies sore throat - Cardiovascular Cardiovascular: Reports as per HPI, Reports chest pain, Denies dyspnea, Reports lightheadedness, Reports radiating jaw, neck or arm pain - Respiratory Respiratory: No cough - Gastrointestinal Gastrointestingal: Denies: abdominal pain - Genitourinary Male Genitourinary: Denies flank pain, Denies hematuria - Musculoskeletal Musculoskeletal: Denies joint pain, Denies joint swelling - Integumentary/Breasts Skin/Breast: Denies rash - Neurologic Neurologic: Denies focal weakness, Denies tingling/numbness/burning sensations, Denies seizure-like activity Physical Exam - General General appearance: alert - Head Head exam: normocephalic - Eye Eye exam: Present: PERRL, EOMI. Absent: scleral icterus - ENT ENT exam: Present: mucous membranes moist - Neck Neck exam: Present: trachea midline - Respiratory Respiratory exam: Present: normal lung sounds bilaterally. Absent: respiratory distress - Cardiovascular Cardiovascular exam: Present: regular rate, systolic murmur. Absent: rubs - Abdominal Exam Abdominal exam: Present: soft - Extremities Exam Extremities exam: Present: full ROM. Absent: calf tenderness - Neurological Exam Neurological exam: Present: alert, oriented X3, CN II-XII intact - Psychiatric Psychiatric exam: Present: normal affect - Skin Skin exam: Absent: rash
--- NOTE | 2019-09-07 07:54 | Pharmacy Consult Notes ---
[facility] Pharmacy VTE Monitoring - Patient Demographics Admission date: 09/07/19 Report Date: 09/07/19 Time: 07:53 Allergies/Adverse Reactions: Patient Allergies No Known Allergies Allergy (Verified 06/14/19 09:50) Height: 1.63 m Weight: 54.431 kg Patient Problems: Current Active Problems Diastolic dysfunction with heart failure (Acute) Unstable angina pectoris due to coronary arteriosclerosis (Acute) - VTE Risk Labs: VTE Related Lab Results Hgb 16.4 g/dL (14.1-18.0) 09/07/19 06:50 Hct 48.6 % (42.0-52.0) 09/07/19 06:50 Plt Count 268 K/mm3 (142-424) 09/07/19 06:50 BUN 19 mg/dl (9-20) 09/07/19 06:50 Creatinine 1.10 mg/dl (0.66-1.25) D 09/07/19 06:50 Estimated Creat Clear 52 mL/min (50-200) 09/07/19 06:50 Clinical Trial Participant: No - Prophylaxis VTE Prophylaxis Ordered?: Yes Types of VTE Prophylaxis: TEDS Knee High
--- NOTE | 2019-09-07 08:27 | Consult Report ---
History of Present Illness Consult date: 09/07/19 Requesting physician: Landen Borrego Consult reason: chest pain Chief complaint: chest pain Additional Medical History:: 1. Hypertension A. Echo, 08/2019, 1. Mildly enlarged left atrium, normal left ventricular size, mild concentric left ventricular hypertrophy, visually estimated ejection fraction 55% with no regional wall motion abnormality, diastolic parameters are inconclusive. Endocardial surfaces are poorly visualized. 2. Mildly enlarged right ventricle with normal contractility. 3. Mild mitral and tricuspid regurgitation. 4. No significant pericardial effusion noted 2. Hyperlipidemia 3. Coronary artery disease A. PRICILA to LAD, Ramus and RCA, 04/2018 B. [facility], 08/2019, The left main artery Normal The left anterior descending artery Has an ostial 10 to 20% stenosis followed by a proximal stent which extends throughout the proximal and mid segment in a contiguous manner. The stent has mild in-stent restenosis with excellent proximal and distal transitioning. The circumflex artery Is a codominant vessel and has an ostial smooth 20 to 30% stenosis. The main circumflex artery has mild luminal irregularities while the first obtuse marginal artery has an ostial 40 to 50% stenosis followed by a proximal to mid vessel stent which is widely patent with mild in-stent restenosis The right coronary artery Is a codominant vessel and has proximal to mid vessel 30% stenoses with distal 30% stenoses The [place] ventriculogram reveals Normal 60-65% The left ventricular end-diastolic pressure 20 to 25 mmHg IMPRESSION Coronary disease as described above Elevated EDP consistent with diastolic dysfunction Normal ejection fraction 4. Bradycardia, secondary to beta jacob therapy 5. Ex smoker, >45 pack yr history, stopped [address] scan, 11/2017, There is a 5 mm nodule left lower lobe posteriorly stable since 11/15/2016. A calcified nodule present in the right lung base medially and there is a calcified 5 mm nodule in the right lung base posteriorly laterally. No additional nodules are evident. No effusions or infiltrates. There are extensive coronary artery calcifications. Calcified nodule present in the left lobe of the thyroid gland measuring 15 mm. A 2 cm soft tissue density is present posterior to the root of the aorta and could be due to small amount fluid within superior pericardial recess similar to an older study of 03/25/2015. There are degenerative changes in the thoracic spine. IMPRESSION: 1. Lung RADS Category: 2, benign 2. Other findings: Severe coronary artery calcifications 6. ETOH use History of present illness: 63-year-old white male admitted earlier this week for chest pain/elevated troponin felt consistent with NSTEMI with subsequent cardiac catheterization revealing [id number] coronary artery disease. Patient was discharged home yesterday after adjustment of medication. Patient did well overnight until this morning when he woke up and was preparing coffee and developed recurrent upper chest and bilateral upper arm discomfort reminiscent of prior chest pain. Patient came to the ER for further evaluation and was given sublingual nitroglycerin with improvement but not resolution of chest pain but subsequent drop in blood pressure from 160 mmHg systolic down to 90 mmHg systolic with associated diaphoresis and lightheadedness. Initial troponin in the ER shows elevation at 0.34 with no acute EKG changes. Cardiology consulted for further evaluation. Slight improvement in symptoms of lightheadedness with SBP of 106 mm Hg. Still with upper chest and arm discomfort at time of exam. Will try ranexa for possible coronary spasm. [facility] History Medical History: Reports:: Cancer ([place] [id number]), Coronary Artery Disease, Hyperlipidemia, Hypertension Denies:: Diabetes Mellitus Type 1, Diabetes Mellitus Type 2, Internal Pacemaker, MRSA, Seizures *Have you ever received a pneumonia vaccine?: No *Have you received a flu vaccine this season?: Yes Other Medical History: Reports: Sinus Problems Laterality Cases: Bilateral: Tonsillectomy, Other Other Surgeries: Yes: Cardiac Catheterization, Colonoscopy, Coronary Stent, Skin Cancer Excision. No: Pacemaker Amputation: No Fractures: No - *Social History Smoking Status: Former smoker Tobacco Type: cigarettes # Packs/Day (cigarettes): 1 Smoking End Date: 2 years Alcohol Intake: never Alcohol Intake Frequency:: a few times a week Substance Use Type: denies use *Occupational Status:: employed Housing: house Household Members: spouse *Travel in the last 8 weeks: None Family Hx:: Cancer, Coronary Artery Disease, Hyperlipidemia, Hypertension Meds Home Medications Medication Instructions Recorded Confirmed Type aspirin 81 mg tablet,delayed 81 mg PO DAILY 05/11/18 09/07/19 History release fenofibric acid (choline) 45 mg 45 mg PO DAILY #90 cap 03/14/19 09/07/19 Rx capsule,delayed release Clopidogrel Bisulfate [Plavix 75mg 75 mg PO DAILY 09/04/19 09/07/19 History Tab] Ezetimibe 10 mg PO DAILY 09/04/19 09/07/19 History Rosuvastatin Calcium 20 mg PO DAILY 09/04/19 09/07/19 History Furosemide [Lasix 40mg tablet] 40 mg PO DAILY 09/07/19 09/07/19 History Losartan Potassium 50 mg PO DAILY 09/07/19 09/07/19 History Metoprolol Succinate 25 mg PO HS 09/07/19 09/07/19 History Spironolactone [Aldactone 25mg 25 mg PO DAILY 09/07/19 09/07/19 History Tab] Allergies Allergy/AdvReac Type Severity Reaction Status Date / Time No Known Allergies Allergy Verified 06/14/19 09:50 Review of Systems - Review of Systems Review of systems:: pertinent systems reviewed and negative unless documented below - *Cardiovascular Reports chest pain, Denies shortness of breath with activity - *Respiratory Denies shortness of breath with activity - *Gastrointestinal Denies loose stools, Denies nausea, Denies vomiting - *Genitourinary Denies blood in urine - *Musculoskeletal Denies joint pain, Denies back pain - *Neurologic Denies localized weakness, Denies tingling/numbness/burning sensations, Denies seizure-like activity Exam Vital signs and Labs for Last 24 Hours: Temp Pulse Resp BP Pulse Ox 98.2 F 81 20 137/77 97 09/07/19 07:52 09/07/19 07:52 09/07/19 07:52 09/07/19 07:52 09/07/19 07:30 Laboratory Results - last 24 hr 09/07/19 06:50: WBC 6.0, RBC 5.24, Hgb 16.4, Hct 48.6, MCV 92.6, MCH 31.4 H, MCHC 33.8, RDW 13.0, Plt Count 268, MPV 7.3 L, Neut % (Auto) 53.4, Lymph % (Auto) 33.3, [place] % (Auto) 9.7 H, Eos % (Auto) 2.6, Baso % (Auto) 1.1, Neut # (Auto) 3.2, Lymph # (Auto) 2.0, [place] # (Auto) 0.6, Eos # (Auto) 0.2, Baso # (Auto) 0.1 09/07/19 06:50: Sodium 140, Potassium 4.4, Chloride 103, Carbon Dioxide 30, Anion Gap 11.4, BUN 19, Creatinine 1.10 D, Estimated Creat Clear 52, Estimated GFR 67, Est GFR ( Amer) 81 D, Glucose 108 H, Calcium 9.9, Troponin I 0.34 H I & O for Last 24 hours: Intake & Output 09/04/19 09/05/19 09/06/19 09/07/19 11:59 11:59 11:59 11:59 Weight 120 lb - *Routine HEENT Exam Head: Present: normocephalic Eye: Present: EOMI, PERRL ENT: Present: mucous membranes moist - *Routine Respiratory Exam Present: CTA bilaterally. Absent: accessory muscle use, rales, rhonchi, wheezes - *Routine Cardiovascular Exam Present: RRR. Absent: murmur, gallop, rubs - *Routine Abdominal Exam Present: soft. Absent: tenderness, distended, guarding - *Routine Extremities Exam Absent: edema, calf tenderness - *Routine Neurological Exam Present: alert, oriented X3, moving all extremities Assessment and Plan (1) Chest pain Current visit: No Status: Acute Qualifiers: Chest pain type: precordial pain Qualified Code(s): R07.2 - Precordial pain Category: Medical Code(s): R07.9 - Chest pain, unspecified (2) Bradycardia Current visit: No Status: Chronic Category: Medical Code(s): R00.1 - Bradycardia, unspecified (3) CAD (coronary artery disease) Current visit: No Status: Chronic Qualifiers: Coronary Disease-Associated Artery/Lesion type: [place] artery [place] vs. transplanted heart: [place] heart Associated angina: without angina Qualified Code(s): I25.10 - Atherosclerotic heart disease of [place] coronary artery without angina pectoris Category: Medical Code(s): I25.10 - Atherosclerotic heart disease of [place] coronary artery without angina pectoris (4) Hyperlipidemia Current visit: No Status: Chronic Qualifiers: Hyperlipidemia type: familial hypercholesterolemia Qualified Code(s): E78.01 - Familial hypercholesterolemia Category: Medical Code(s): E78.5 - Hyperlipidemia, unspecified (5) Obesity (BMI 30.0-34.9) Current visit: No Status: Chronic Category: Medical Code(s): E66.9 - Obesity, unspecified - Assessment and plan all Dx Assessment and Plan for all problems:: 1. Recurrent CP in pt with known 3 vessel coronary stenting in 2018. Recent admission this week for elevated troponin/suspected NSTEMI with LHC revealing non-flow limiting CAD. Medical therapy recommended with DAPT and continuation of BB along with continue ASA and plavix. Will give IVF today. Will review LHC from this week. Will get barium swallow to assess for esophageal disorder. 2. Bradycardia, persistent despite reduction of beta jacob. Will consider holding after reviewing LHC and discussion with Dr. Fitch. 3. HLD with LDL 121 this week, on statin, fibric acid and zetia.
--- NOTE | 2019-09-07 14:45 | H&P/Discharge Summary ---
General - General Admission date:: 09/07/19 Discharge date: 09/07/19 *Admission Date: 09/07/19 *Chief complaint: chest pain *History of present illness: this pt presented to [facility] ed this am with chest pain - he had recent admit and cath at [facility] with abn findings but no stent - pt has been compliant with meds - pt with partial relief with ntg but sig change in bp and had intol to nitrates - pt was admitted with unstable angina [facility] History I have reviewed the patient's past medical history: Yes Medical History: Reports:: Coronary Artery Disease, Hyperlipidemia, Hypertension Denies:: Cancer, Diabetes Mellitus Type 1, Diabetes Mellitus Type 2, Internal Pacemaker, MRSA, Seizures *Have you ever received a pneumonia vaccine?: No *Have you received a flu vaccine this season?: Yes Other Medical History: Reports: Sinus Problems Laterality Cases: Bilateral: Tonsillectomy, Other Other Surgeries: Yes: Cardiac Catheterization, Colonoscopy, Coronary Stent, Skin Cancer Excision. No: Pacemaker Amputation: No Fractures: No - *Social History Educational Level: Completed High School Smoking Status: Former smoker Tobacco Type: cigarettes # Packs/Day (cigarettes): 1 Smoking End Date: 05/02/2018 Alcohol Intake: never Alcohol Intake Frequency:: a few times a week Substance Use Type: denies use *Occupational Status:: employed Housing: house Household Members: spouse *Travel in the last 8 weeks: None Family Hx:: Cancer, Coronary Artery Disease, Diabetes, Heart Attack, Hyperlipidemia, Hypertension Review of Systems - Review of Systems Review of systems:: pertinent systems reviewed and negative unless documented below - Constitutional Denies fever(s) - Eyes Denies change in vision - ENT Denies tongue swelling - *Cardiovascular Reports chest pain at rest, Reports radiating jaw, neck or arm pain, Reports slow heart rate - *Respiratory Denies cough - *Gastrointestinal Denies abdominal pain - *Genitourinary Denies blood in urine - *Musculoskeletal Denies joint pain - Integumentary/Breasts Denies rash - *Neurologic Denies localized weakness, Denies tingling/numbness/burning sensations, Denies seizure-like activity - Psychiatric Denies anxiety Exam Vital signs and Labs for Last 24 Hours: Temp Pulse Resp BP Pulse Ox 97.9 F 57 L 19 120/69 98 09/07/19 12:00 09/07/19 12:00 09/07/19 12:00 09/07/19 12:00 09/07/19 12:00 Laboratory Results - last 24 hr 09/07/19 06:50: WBC 6.0, RBC 5.24, Hgb 16.4, Hct 48.6, MCV 92.6, MCH 31.4 H, MCHC 33.8, RDW 13.0, Plt Count 268, MPV 7.3 L, Neut % (Auto) 53.4, Lymph % (Auto) 33.3, [place] % (Auto) 9.7 H, Eos % (Auto) 2.6, Baso % (Auto) 1.1, Neut # (Auto) 3.2, Lymph # (Auto) 2.0, [place] # (Auto) 0.6, Eos # (Auto) 0.2, Baso # (Auto) 0.1 09/07/19 06:50: Sodium 140, Potassium 4.4, Chloride 103, Carbon Dioxide 30, Anion Gap 11.4, BUN 19, Creatinine 1.10 D, Estimated Creat Clear 52, Estimated GFR 67, Est GFR ( Amer) 81 D, Glucose 108 H, Calcium 9.9, Troponin I 0.34 H 09/07/19 10:10: Troponin I 0.27 H 09/07/19 13:35: Troponin I 0.93 H I & O for Last 24 hours: Intake & Output 09/05/19 09/06/19 09/07/19 09/08/19 11:59 11:59 11:59 11:59 Intake Total 0 / 0 480 / 480 Balance 0 / 0 480 / 480 Weight 207 lb - Constitutional no acute distress - *Routine HEENT Exam Head: Present: normocephalic Eye: Present: EOMI, PERRL. Absent: conjunctival icterus, nystagmus ENT: Present: mucous membranes dry - *Routine Neck Exam Absent: JVD - *Routine Respiratory Exam Present: CTA bilaterally - *Routine Cardiovascular Exam Present: murmur, bradycardia. Absent: rubs, S3 - *Routine Abdominal Exam Present: soft - *Routine Extremities Exam Present: full ROM - *Routine Skin Exam Present: intact - *Routine Neurological Exam Present: alert, CN II-XII intact - Routine Psychiatric Exam Present: normal affect Hospital Course Hospital Course: pt was seen by aida -Radha Randhawa, 08/2019, 1. Mildly enlarged left atrium, normal left ventricular size, mild concentric left ventricular hypertrophy, visually estimated ejection fraction 55% with no regional wall motion abnormality, diastolic parameters are inconclusive. Endocardial surfaces are poorly visualized. 2. Mildly enlarged right ventricle with normal contractility. 3. Mild mitral and tricuspid regurgitation. 4. No significant pericardial effusion noted 2. Hyperlipidemia 3. Coronary artery disease A. PRICILA to LAD, Ramus and RCA, 04/2018 B. LHC, 08/2019, The left main artery Normal The left anterior descending artery Has an ostial 10 to 20% stenosis followed by a proximal stent which extends throughout the proximal and mid segment in a contiguous manner. The stent has mild in-stent restenosis with excellent proximal and distal transitioning. The circumflex artery Is a codominant vessel and has an ostial smooth 20 to 30% stenosis. The main circumflex artery has mild luminal irregularities while the first obtuse marginal artery has an ostial 40 to 50% stenosis followed by a proximal to mid vessel stent which is widely patent with mild in-stent restenosis The right coronary artery Is a codominant vessel and has proximal to mid vessel 30% stenoses with distal 30% stenoses The [place] ventriculogram reveals Normal 60-65% The left ventricular end-diastolic pressure 20 to 25 mmHg IMPRESSION Coronary disease as described above Elevated EDP consistent with diastolic dysfunction Normal ejection fraction Bradycardia, secondary to beta jacob therapy 5. Ex smoker, >45 pack yr history, stopped [address] scan, 11/2017, There is a 5 mm nodule left lower lobe posteriorly stable since 11/15/2016. A calcified nodule present in the right lung base medially and there is a calcified 5 mm nodule in the right lung base posteriorly laterally. No additional nodules are evident. No effusions or infiltrates. There are extensive coronary artery calcifications. Calcified nodule present in the left lobe of the thyroid gland measuring 15 mm. A 2 cm soft tissue density is present posterior to the root of the aorta and could be due to small amount fluid within superior pericardial recess similar to an older study of 03/25/2015. There are degenerative changes in the thoracic spine. IMPRESSION: 1. Lung RADS Category: 2, benign 2. Other findings: Severe coronary artery calcifications 6. ETOH use 3-year-old white male admitted earlier this week for chest pain/elevated troponin felt consistent with NSTEMI with subsequent cardiac catheterization revealing [id number] coronary artery disease. Patient was discharged home yesterday after adjustment of medication. Patient did well overnight until this morning when he woke up and was preparing coffee and developed recurrent upper chest and bilateral upper arm discomfort reminiscent of prior chest pain. Patient came to the ER for further evaluation and was given sublingual nitroglycerin with improvement but not resolution of chest pain but subsequent drop in blood pressure from 160 mmHg systolic down to 90 mmHg systolic with associated diaphoresis and lightheadedness. Initial troponin in the ER shows elevation at 0.34 with no acute EKG changes. Cardiology consulted for further evaluation. Slight improvement in symptoms of lightheadedness with SBP of 106 mm Hg. Still with upper chest and arm discomfort at time of exam. Will try ranexa for possible coronary spasm. pt did well with med and peace Fitch reviewed LHC from this week. Recommends medical management with no significant flow limiting CAD noted. Barium swallow results pending. Will reduce metoprolol succinate to 12.5 mg daily due to bradycardia Continue home meds of losartan 50 mg daily, ASA 81 mg daily, plavix 75 mg daily, furosemide 40 mg daily, spironolactone 25 mg daily, zetia 10 mg daily, crestor 20 mg daily and fenofibric acid 45 mg daily. Add Ranexa 500 mg BID Consider discharge home later today or in AM if remains symptom free. Follow up in one week. Results Labs on day of discharge: Labs from last 24 hours 09/07/19 09/07/19 09/07/19 13:35 10:10 06:50 WBC RBC Hgb Hct MCV MCH MCHC RDW Plt Count MPV Neut % (Auto) Lymph % (Auto) [place] % (Auto) Eos % (Auto) Baso % (Auto) Neut # (Auto) Lymph # (Auto) [place] # (Auto) Eos # (Auto) Baso # (Auto) Sodium 140 Potassium 4.4 Chloride 103 Carbon Dioxide 30 Anion Gap 11.4 BUN 19 Creatinine 1.10 D Estimated Creat Clear 52 Estimated GFR 67 Est GFR ( Amer) 81 D Glucose 108 H Calcium 9.9 Troponin I 0.93 H 0.27 H 0.34 H 09/07/19 06:50 WBC 6.0 RBC 5.24 Hgb 16.4 Hct 48.6 MCV 92.6 MCH 31.4 H MCHC 33.8 RDW 13.0 Plt Count 268 MPV 7.3 L Neut % (Auto) 53.4 Lymph % (Auto) 33.3 [place] % (Auto) 9.7 H Eos % (Auto) 2.6 Baso % (Auto) 1.1 Neut # (Auto) 3.2 Lymph # (Auto) 2.0 [place] # (Auto) 0.6 Eos # (Auto) 0.2 Baso # (Auto) 0.1 Sodium Potassium Chloride Carbon Dioxide Anion Gap BUN Creatinine Estimated Creat Clear Estimated GFR Est GFR ( Amer) Glucose Calcium Troponin I DS: Diagnosis - Discharge Diagnosis (1) Chest pain Status: Acute (2) Bradycardia Status: Chronic (3) CAD (coronary artery disease) Status: Chronic (4) Hyperlipidemia Status: Chronic (5) Obesity (BMI 30.0-34.9) Status: Chronic (6) Unstable angina pectoris due to coronary arteriosclerosis Status: Acute (7) Diastolic dysfunction with heart failure Status: Acute Discharge Plan - Patient Discharge Instructions ACTIVITY: Continue current activity DIET: continue same diet - Follow up Plan Disposition: Home, Self-Usp Medications: Home Medications Medication Instructions Recorded Confirmed Type aspirin 81 mg tablet,delayed 81 mg PO DAILY 05/11/18 09/07/19 History release fenofibric acid (choline) 45 mg 45 mg PO DAILY #90 cap 03/14/19 09/07/19 Rx capsule,delayed release Clopidogrel Bisulfate [Plavix 75mg 75 mg PO DAILY 09/04/19 09/07/19 History Tab] Ezetimibe 10 mg PO DAILY 09/04/19 09/07/19 History Rosuvastatin Calcium 20 mg PO DAILY 09/04/19 09/07/19 History Furosemide [Lasix 40mg tablet] 40 mg PO DAILY 09/07/19 09/07/19 History Losartan Potassium 50 mg PO DAILY 09/07/19 09/07/19 History Metoprolol Succinate 25 mg PO HS 09/07/19 09/07/19 History Spironolactone [Aldactone 25mg 25 mg PO DAILY 09/07/19 09/07/19 History Tab] Prescriptions/Medication Reconciliation: New Furosemide [Lasix 40mg tablet] 40 mg PO DAILY tablet Ranolazine [Ranexa 500mg ER tablet] 500 mg PO BID tab.er.12h Spironolactone [Aldactone 25mg Tab] 25 mg PO DAILY tablet Irbesartan [Avapro 75mg tablet] 75 mg PO DAILY tablet Continued aspirin 81 mg tablet,delayed release 81 mg PO DAILY fenofibric acid (choline) 45 mg capsule,delayed release 45 mg PO DAILY #90 cap Spironolactone [Aldactone 25mg Tab] 25 mg PO DAILY Furosemide [Lasix 40mg tablet] 40 mg PO DAILY Rosuvastatin Calcium 20 mg PO DAILY Ezetimibe 10 mg PO DAILY Clopidogrel Bisulfate [Plavix 75mg Tab] 75 mg PO DAILY Losartan Potassium 50 mg PO DAILY Metoprolol Succinate 25 mg PO HS - Problem Reconciliation Problems Reviewed?: Yes
--- NOTE | 2019-09-07 21:18 | Electrocardiograph Report ---
APPROVED REPORT Exam: Resting ECG HR:51 bpm ECG Measurements Heart Rate 51 AXES MI 166 P 37 QRSd 84 QRS 42 QT 462 T50 QTc 425 <Conclusion> Sinus bradycardia Otherwise normal ECG Electronically signed by : Hebert Knox, 09/07/2019 21:18:23
== END 2019-09-07 16:10 | disposition home or self-care (01) ==
LOC: 2ND 06:41 → ER 06:41 → 2ND 08:09
PROVIDERS: ADMIT Emergency Medicine; ATTEND Emergency Medicine
DX: Z79.82 Long term (current) use of aspirin; I50.33 Acute on chronic diastolic (congestive) heart failure; Z95.5 Presence of coronary angioplasty implant and graft; Z83.438 Family history of other disorder of lipoprotein metabolism and other lipidemia; E78.01 Familial hypercholesterolemia; Z85.828 Personal history of other malignant neoplasm of skin; I50.31 Acute diastolic (congestive) heart failure; Z87.891 Personal history of nicotine dependence; Z79.899 Other long term (current) drug therapy; T82.855D Stenosis of coronary artery stent, subsequent encounter; I07.1 Rheumatic tricuspid insufficiency; Z79.02 Long term (current) use of antithrombotics/antiplatelets; I21.4 Non-ST elevation (NSTEMI) myocardial infarction; I11.0 Hypertensive heart disease with heart failure; I25.110 Atherosclerotic heart disease of native coronary artery with unstable angina pectoris; I34.0 Nonrheumatic mitral (valve) insufficiency; Z80.1 Family history of malignant neoplasm of trachea, bronchus and lung; Z82.49 Family history of ischemic heart disease and other diseases of the circulatory system
CPT/HCPCS: 36415; 71020; 71046; 74220; 80048; 84484; 85025; 93005; 96365; 96374; 96375; 99284; G0378; J2405

== ENCOUNTER → 2019-09-25 08:24 | Outpatient (CLI) | payer MEDICARE, SELFPAY ==
--- NOTE | 2019-09-25 08:24 | CT_ITS ---
PROCEDURE: CT LUNG SCREENING CLINICAL INDICATION: lung nodule 50 pack-year smoking history, asymptomatic for lung cancer COMPARISON: LUNGSCREEN CT lung screening from 11/24/2017 TECHNIQUE: The exam was performed on a GE Light Speed [address] scanner using 2.90 mGy CTDI. A low dose helical CT CHEST was performed on a multi-detector scanner. All CT scans at the facility use one or more dose reduction, viz: automated exposure control, ma/kV adjustment per patient size (including targeted exams where dose is matched to indication, i.e. head), or iterative reconstruction technique. The LDCT was performed in a facility that meets the criteria for the screening program. Data regarding this exam was submitted to ACR which is an approved registry. The order for this exam indicates that it came as a result of a lung cancer screening counseling shard decision-making visit that included all the elements required of such a visit including smoking cessation. The radiologist interpreting this exam meets the CMS criteria for the LDCT lung cancer screening program. The exam is reported using the Lung-RADS classification scale and reported to the ACR registry. NOTE: This study was performed for the specific purposes of lung cancer screening and is not an alternative to diagnostic chest CT. RADIATION DOSE: CTDI vol(CT dose Index-volume) = 2.90mG DLP (Dose Length Product) = 112.29 mGcm Lung Rads Category: FINDINGS: Calcified nodule right lung base medially. Calcified nodule right lower lobe posterior laterally. Noncalcified 5 mm nodule left lower lobe posteriorly image 57 unchanged OTHER FINDINGS: No change calcified left thyroid nodule. There is diffuse coronary artery calcification and/or stents noted IMPRESSION: Lung rads category 2 benign findings. Recommend annual LD CT Dictated by: Jose Carpio MD 10/07/2019 10:33 Electronically signed by Jose Carpio MD in [place] 10/07/2019 10:33
== END ==
PROVIDERS: PCP Physician Assistant; Visit Provider Physician Assistant
DX: R91.1 Solitary pulmonary nodule (principal); Z87.891 Personal history of nicotine dependence; Z12.2 Encounter for screening for malignant neoplasm of respiratory organs

== ENCOUNTER → 2019-12-17 08:47 | Outpatient (CLI) | payer MEDICARE, SELFPAY ==
[2019-12-17 10:02] LABS: Alanine Aminotransferase 27 U/L (12-78); Albumin Level 4.4 g/dl (3.5-5.0); Alkaline Phosphatase 70 U/L (38-126); Aspartate Amino Transferase 30 U/L (17-59); Bilirubin,Direct 0.1 mg/dl (0.0-0.4); Bilirubin,Indirect 0.5 mg/dL (0.0-0.9); Bilirubin,Total 0.6 mg/dl (0.2-1.3); Bilirubin,Unconjugated 0.5 mg/dL (0.0-1.1); Chol/HDL Ratio 2.5 (1-3.5); Cholesterol 144 mg/dl (140-200); HDL Cholesterol 57 mg/dl (40-60); Total Protein,Serum 6.7 g/dl (6.3-8.2); Triglycerides 124 mg/dl (30-150); VLDL Cholesterol 25 mg/dL (0-40)
[2019-12-17 10:13] LABS: Direct LDL Cholesterol 84.66 mg/dL (100-129)
== END ==
PROVIDERS: Visit Provider Physician Assistant
DX: E78.5 Hyperlipidemia, unspecified; E66.9 Obesity, unspecified; I25.10 Atherosclerotic heart disease of native coronary artery without angina pectoris; I50.30 Unspecified diastolic (congestive) heart failure; I50.33 Acute on chronic diastolic (congestive) heart failure
CPT/HCPCS: 36415; 80061; 80076

== ENCOUNTER → 2020-01-23 17:43 | Outpatient (CLI) | payer MEDICARE, SELFPAY ==
[2020-01-23 18:26] LABS: Basophils # 0.1 K/mm3 (0-0.2); Basophils % 0.9 % (0.1-2.0); Eosinophils # 0.3 K/mm3 (0.0-0.4); Eosinophils % 4.8 % (0.1-12.0); Hematocrit 42.5 % (42.0-52.0); Lymphocytes # 1.4 K/mm3 (0.7-4.5); Lymphocytes % 26.4 % (10-50); Mean Corpuscular HGB Conc 35.2 g/dL (31.8-35.4); Mean Corpuscular Hemoglobin 32.9 pg (27.0-31.2); Mean Corpuscular Volume 93.6 fl (80-94); Mean Platelet Volume 7.8 fl (7.4-10.4); Monocytes # 0.5 K/mm3 (0.1-1.0); Monocytes % 8.6 % (1.7-9.3); Neutrophils # 3.2 K/mm3 (1.8-7.8); Neutrophils % 59.3 % (37.0-80.0); Platelet Count 287 K/mm3 (142-424); Red Blood Count 4.54 M/mm3 (4.60-6.20); White Blood Count 5.4 K/mm3 (4.8-10.8)
[2020-01-23 19:05] LABS: Alanine Aminotransferase 38 U/L (12-78); Albumin Level 4.4 g/dl (3.5-5.0); Albumin/Globulin Ratio 1.7 (1.1-1.8); Alkaline Phosphatase 91 U/L (38-126); Anion Gap 14.7 mEq/L (5-15); Aspartate Amino Transferase 43 U/L (17-59); Bilirubin,Total 0.5 mg/dl (0.2-1.3); Blood Urea Nitrogen 22 mg/dl (9-20); Calcium 9.9 mg/dl (8.4-10.2); Carbon Dioxide 27 mmol/L (22.0-30.0); Chloride 100 mmol/L (98-107); Chol/HDL Ratio 2.8 (1-3.5); Cholesterol 145 mg/dl (140-200); Estimated Glomerular Filt Rate 61 ml/min (>60); GFR (African American) 73 ML/MIN (>60); Globulin 2.6 g/dL (1.3-3.2); Glucose 136 mg/dl (74-100); HDL Cholesterol 52 mg/dl (40-60); Potassium 3.7 mmoL/L (3.5-5.1); Sodium 138 mmol/L (136-145); Triglycerides 275 mg/dl (30-150); VLDL Cholesterol 55 mg/dL (0-40)
[2020-01-23 19:17] LABS: Direct LDL Cholesterol 75.19 mg/dL (100-129)
[2020-01-23 19:22] LABS: T4 (Thyroxine) 8.8 ug/dl (5.53-11.0)
[2020-01-23 19:23] LABS: 25-OH Vitamin D, Total 30.5 ng/mL (30-100)
[2020-01-23 19:35] LABS: Prostate Specific Ag Screen 0.7 ng/ml (0.0-4.0); Thyroid Stimulating Hormone 1.57 uIU/mL (0.465-4.68)
[2020-01-24 10:37] LABS: Hemoglobin A1C 5.5 % (4.0-6.0)
== END ==
PROVIDERS: Visit Provider Physician Assistant
DX: R00.2 Palpitations (principal); R07.89 Other chest pain; I50.30 Unspecified diastolic (congestive) heart failure; Z12.5 Encounter for screening for malignant neoplasm of prostate; E55.9 Vitamin D deficiency, unspecified; R73.9 Hyperglycemia, unspecified
CPT/HCPCS: 80053; 80061; 82306; 83036; 84436; 84443; 85025; G0103

== ENCOUNTER → 2020-01-24 10:09 | Outpatient (CLI) | payer MEDICARE, SELFPAY | PROVIDERS: PCP Physician Assistant; Visit Provider Internal Medicine Cardiovascular Disease | DX: R00.2 Palpitations (principal) | CPT/HCPCS: 93225 ==

== ENCOUNTER → 2020-09-09 14:00 | Outpatient (CLI) | payer MEDICARE, SELFPAY ==
[2020-09-09 14:14] LABS: Basophils # 0.1 K/mm3 (0-0.2); Basophils % 0.7 % (0.1-2.0); Eosinophils # 0.1 K/mm3 (0.0-0.4); Eosinophils % 1.3 % (0.1-12.0); Hematocrit 44.5 % (42.0-52.0); Hemoglobin 14.9 g/dL (14.1-18.0); Lymphocytes # 1.9 K/mm3 (0.7-4.5); Lymphocytes % 29.3 % (10-50); Mean Corpuscular HGB Conc 33.6 g/dL (31.8-35.4); Mean Corpuscular Hemoglobin 31.6 pg (27.0-31.2); Mean Corpuscular Volume 94.3 fl (80-94); Monocytes # 0.6 K/mm3 (0.1-1.0); Monocytes % 9.1 % (1.7-9.3); Neutrophils # 3.8 K/mm3 (1.8-7.8); Neutrophils % 59.5 % (37.0-80.0); Platelet Count 295 K/mm3 (142-424); Red Blood Count 4.72 M/mm3 (4.60-6.20); White Blood Count 6.3 K/mm3 (4.8-10.8)
[2020-09-09 14:27] LABS: Alanine Aminotransferase 31 U/L (12-78); Albumin Level 4.7 g/dl (3.5-5.0); Albumin/Globulin Ratio 1.9 (1.1-1.8); Alkaline Phosphatase 72 U/L (38-126); Anion Gap 12.7 mEq/L (5-15); Aspartate Amino Transferase 31 U/L (17-59); Bilirubin,Total 0.6 mg/dl (0.2-1.3); Blood Urea Nitrogen 19 mg/dl (9-20); Calcium 10.2 mg/dl (8.4-10.2); Carbon Dioxide 29 mmol/L (22.0-30.0); Chloride 104 mmol/L (98-107); Chol/HDL Ratio 2.9 (1-3.5); Cholesterol 137 mg/dl (140-200); Estimated Glomerular Filt Rate 67 ml/min (>60); GFR (African American) 81 ML/MIN (>60); Globulin 2.5 g/dL (1.3-3.2); Glucose 90 mg/dl (74-100); HDL Cholesterol 48 mg/dl (40-60); Potassium 4.7 mmoL/L (3.5-5.1); Sodium 141 mmol/L (136-145); Total Protein,Serum 7.2 g/dl (6.3-8.2); Triglycerides 144 mg/dl (30-150); VLDL Cholesterol 29 mg/dL (0-40)
[2020-09-09 14:37] LABS: Direct LDL Cholesterol 65.38 mg/dL (100-129)
[2020-09-09 14:43] LABS: 25-OH Vitamin D, Total 35.3 ng/mL (30-100); Free T4 (Free Thyroxine) 1.12 ng/dl (0.78-2.19)
[2020-09-09 14:58] LABS: Thyroid Stimulating Hormone 1.98 uIU/mL (0.465-4.68)
[2020-09-11 10:41] LABS: Testosterone,Total 352 ng/dL (264-916)
== END ==
PROVIDERS: Visit Provider Physician Assistant
DX: E55.9 Vitamin D deficiency, unspecified (principal); E78.5 Hyperlipidemia, unspecified; I25.10 Atherosclerotic heart disease of native coronary artery without angina pectoris; L60.8 Other nail disorders; N64.59 Other signs and symptoms in breast; R07.89 Other chest pain
CPT/HCPCS: 80053; 80061; 82306; 84403; 84439; 84443; 85025

== ENCOUNTER → 2020-09-22 10:24 | Outpatient (CLI) | payer MEDICARE, SELFPAY ==
--- NOTE | 2020-09-22 10:29 | US_ITS ---
PROCEDURE: US BREAST RT COMPLETE CLINICAL INDICATION: bilateral breast pain Bilateral breast pain and swelling and tenderness COMPARISON: US US BREAST LT COMPLETE from 09/22/2020 FINDINGS: Right breast: Hypoechogenicity noted in the retroareolar region consistent with gynecomastia. No suspicious mass or cyst evident. Left breast: Hypoechogenicity in the retroareolar region consistent with gynecomastia. No suspicious mass or cyst evident. IMPRESSION: Suspect mild bilateral gynecomastia. Recommend six-month follow-up to confirm stability. No suspicious nodules apparent. If symptoms persist or become worse then, would recommend bilateral mammogram Dictated by: Jose Carpio MD 09/26/2020 13:07 Jose Carpio MD in [facility] 09/26/2020 13:07
== END ==
PROVIDERS: PCP Physician Assistant; Visit Provider Physician Assistant
DX: N64.59 Other signs and symptoms in breast (principal); N64.4 Mastodynia
CPT/HCPCS: 76641

== ENCOUNTER → 2020-10-08 08:30 | Outpatient (CLI) | payer MEDICARE, SELFPAY ==
--- NOTE | 2020-10-08 08:30 | CT_ITS ---
PROCEDURE: CT LUNG SCREENING CLINICAL INDICATION: lung cancer screening Former smoker Quit smoking 10 years ago COMPARISON: CT CT LUNG SCREENING from 09/25/2019 TECHNIQUE: The exam was performed on a GE Light Speed [address] scanner using 2.90 mGy CTDI. A low dose helical CT CHEST was performed on a multi-detector scanner. All CT scans at the facility use one or more dose reduction, viz: automated exposure control, ma/kV adjustment per patient size (including targeted exams where dose is matched to indication, i.e. head), or iterative reconstruction technique. The LDCT was performed in a facility that meets the criteria for the screening program. Data regarding this exam was submitted to ACR which is an approved registry. The order for this exam indicates that it came as a result of a lung cancer screening counseling shard decision-making visit that included all the elements required of such a visit including smoking cessation. The radiologist interpreting this exam meets the [facility] criteria for the LDCT lung cancer screening program. The exam is reported using the Lung-RADS classification scale and reported to the ACR registry. NOTE: This study was performed for the specific purposes of lung cancer screening and is not an alternative to diagnostic chest CT. RADIATION DOSE: CTDI vol(CT dose Index-volume) = 2.90mG DLP (Dose Length Product) = 116.72 mGcm FINDINGS: No change old granulomatous disease. Noncalcified 4 mm nodule left lower lobe unchanged. No new suspicious nodules apparent. OTHER FINDINGS: No change left calcified thyroid nodule. Gynecomastia. Diffuse coronary artery calcification and/or stents noted. IMPRESSION: Lung-RADS Category 2 Benign Appearance or Behavior Follow-up: Continue annual screening with LDCT in 12 months Dictated by: Jose Carpio MD 10/10/2020 12:18 Jose Carpio MD in [place] 10/10/2020 12:18
== END ==
PROVIDERS: PCP Physician Assistant; Visit Provider Physician Assistant
DX: Z87.891 Personal history of nicotine dependence (principal); Z12.2 Encounter for screening for malignant neoplasm of respiratory organs
CPT/HCPCS: 71271

== ENCOUNTER → 2020-10-15 10:24 | Outpatient (CLI) | payer MEDICARE, SELFPAY ==
--- NOTE | 2020-10-15 10:27 | XR_ITS ---
PROCEDURE: XR CERVICAL SPINE 4V CLINICAL INDICATION: neck pain COMPARISON: No exams were available for comparison FINDINGS: No fracture or dislocation. No lytic or blastic change. There is normal mineralization. There is minimal anterolisthesis of C3 on C4 of 2 mm. Alignment is otherwise unremarkable. There is mild degenerative disc disease at C5-C6 and C6-C7. no significant foraminal narrowing. Incidental note is made of carotid artery calcification on both sides. Other findings:None. IMPRESSION: Degenerative disc disease C5-C6 and C6-C7. Carotid artery calcification bilaterally Dictated by: Jose Carpio MD 10/15/2020 12:45 Jose Carpio MD in [place] 10/15/2020 12:45
== END ==
PROVIDERS: PCP Physician Assistant; Visit Provider Physician Assistant
DX: M54.2 Cervicalgia (principal)
CPT/HCPCS: 72050

== ENCOUNTER → 2020-10-23 07:51 | Outpatient (CLI) | payer MEDICARE, SELFPAY ==
--- NOTE | 2020-10-23 07:53 | CA_ITS ---
APPROVED REPORT Physician Non Invasive Cardiologist: Romina Aquino RVT Laterality: Bilateral Study Quality: Good Indications: CALCIFICATION SEEN ON C-SPINE X-RAY Risk Factors Hypertension: Hyperlipidemia Doppler Spectral Velocity Analysis ECA (R) 116.60/17.10 cm/s ECA (L) 92.50/19.30 cm/s dICA (R) 77.00/29.90 cm/s dICA (L) 147.40/52.00 cm/s Danial (R) 63.10/20.30 cm/s Danial (L) 75.10/27.00 cm/s pICA (R) 56.70/16.00 cm/s pICA (L) 66.50/27.90 cm/s dCCA (R) 53.50/21.40 cm/s dCCA (L) 71.30/23.10 cm/s pCCA (R) 75.90/13.90 cm/s pCCA (L) 91.50/18.30 cm/s Vert (R) 26.70/6.20 cm/s Vert (L) 42.40/15.40 cm/s ICA/CCA 1.44 ICA/CCA 2.07 Findings Study suggests 20-49% (lower end of scale)stenosis of the right internal cartoid artery. Study suggests 20-49% stenosis (lower end of scale) of the left internal cartoid artery. Tortuous left internal cartoid artery. Antegrade flow seen bilateral vertebral arteries. Bilateral thyroid nodules seen. Conclusion Study suggests 20-49% (lower end of scale)stenosis of the right internal cartoid artery. Study suggests 20-49% stenosis (lower end of scale) of the left internal cartoid artery. Tortuous left internal cartoid artery. Antegrade flow seen bilateral vertebral arteries. Bilateral thyroid nodules seen. Thyroid ultrasound should be considered. Electronically signed by : Morena Brown, 10/23/2020 16:54:46
== END ==
PROVIDERS: PCP Physician Assistant; Visit Provider Physician Assistant
DX: I25.10 Atherosclerotic heart disease of native coronary artery without angina pectoris (principal); I65.23 Occlusion and stenosis of bilateral carotid arteries; Z87.891 Personal history of nicotine dependence
CPT/HCPCS: 93880

== ENCOUNTER → 2020-10-31 07:51 | Outpatient (CLI) | payer MEDICARE, SELFPAY ==
--- NOTE | 2020-10-31 07:52 | MR_ITS ---
PROCEDURE INFORMATION: Exam: MR Cervical Spine Without Contrast Exam date and time: 10/31/2020 7:52 AM Age: 64 years old Clinical indication: Neck pain; Patient HX: PT C/O neck soreness and stiffness x 5 months with no known injury or trauma. Prior c-spine xrays done 10/15/2020; Additional info: Ddd TECHNIQUE: Imaging protocol: Multiplanar magnetic resonance images of the cervical spine without contrast. COMPARISON: CR XR CERVICAL SPINE 4V 10/15/2020 10:33 AM FINDINGS: Vertebrae: The cervical spine alignment is maintained without disruption of the anterior, posterior or spinal laminar lines. The vertebral body heights and marrow signal are maintained. There is abnormal decreased T1 and increased T2/STIR signal within the left facets at C3 and C4 with periarticular fluid and edema. The findings are suggestive of marrow edema related to facet arthropathy. I do not see a periarticular abscess here to indicate this is a septic arthritis, although, that is not excluded. There is abnormal decreased T1 and increased T2 signal within the superior left border of T1 extending slightly into the pedicle and facet. I question mild collapse of the superior endplate as well. The findings may be sequelae of a mild compression fracture here, although, a bone lesion or metastasis here cannot be excluded. Correlation with a high-resolution thin cut CT to assess the osseous structures more thoroughly is advised. In addition, further evaluation with contrast-enhanced axial and sagittal T1 weighted images might be considered. Spinal cord: There is no cord mass, atrophy or abnormal internal cord signal. Discs/Spinal canal/Neural foramina: C2/3: No significant spinal canal stenosis, neural foraminal narrowing or nerve root compression. C3/4: Mild posterior disc osteophyte complex slightly effacing the anterior thecal sac resulting in minimal spinal canal narrowing. Mild bilateral neural foraminal narrowing secondary to facet arthropathy and uncovertebral hypertrophy. C4/5: No significant spinal canal stenosis or neural foraminal narrowing. C5/6: [id number] diffuse posterior disc osteophyte complex with a more prominent left paracentral component effacing the anterior thecal sac and resulting in mild spinal canal stenosis. When combined with uncovertebral hypertrophy and facet arthropathy there is moderate to severe left and mild to moderate right neural foraminal narrowing. C6/7: There is a mild diffuse posterior disc osteophyte complex with a more prominent far left paracentral component which when combined with facet arthropathy and uncovertebral hypertrophy results in moderate to severe left and mild right neural foraminal narrowing. C7/T1: No significant spinal canal stenosis or neural foraminal narrowing. Vasculature: Expected flow voids in the vertebral arteries. Soft tissues: Unremarkable Other findings: No additional regions of abnormal marrow signal are seen. IMPRESSION: 1. Abnormal marrow edema within the left facet at C3 and C4 with periarticular soft tissue edema which may be sequelae of a prominent facet arthrosis. I do not see a definite periarticular fluid collection to indicate this is a septic arthritis, although, that is not excluded. 2. Additional levels of degenerative disease as detailed above level by level. 3. Indeterminate decreased T1 and increased STIR signal within the superior left aspect of T1 which is incompletely evaluated here. Potentially this could be sequelae of a compression fracture through the superior endplate, although, a bone lesions such as bone metastasis cannot be excluded. Correlation
--- NOTE | 2020-10-31 09:41 | US_ITS ---
PROCEDURE: US THYROID CLINICAL INDICATION: Thyroid nodules COMPARISON: No exams were available for comparison FINDINGS: Right lobe: 4.7 x 1.9 x 2.6 cm. In the mid polar region there is a 6 x 6 mm solid slightly hypoechoic nodule. In addition, in the mid polar region there is an 11 x 10 mm isoechoic to slightly hypoechoic well-circumscribed nodule. Left lobe: 3.9 x 1.5 x 2.3 cm. Hyperechoic nodule is present in the upper pole at 8 mm. 4 mm hypoechoic nodules present in the mid polar region. Isthmus: Unremarkable Additional findings: No obvious calcification of the nodules. IMPRESSION: TR level 3 nodules on the right less than 1.5 cm. 6-12 month follow-up suggested. Dictated by: Jose Carpio MD 11/01/2020 07:05 Jose Carpio MD in [place] 11/01/2020 07:05
== END ==
PROVIDERS: PCP Physician Assistant; Visit Provider Physician Assistant
DX: M50.30 Other cervical disc degeneration, unspecified cervical region (principal); E04.1 Nontoxic single thyroid nodule
CPT/HCPCS: 72141; 76376; 76536

== ENCOUNTER → 2020-11-28 08:19 | Outpatient (CLI) | payer MEDICARE, SELFPAY ==
[2020-11-28 08:38] LABS: Chloride 101 mmol/L (98-107); Potassium 4.4 mmoL/L (3.5-5.1); Sodium 138 mmol/L (136-145)
[2020-11-28 08:41] LABS: Anion Gap 12.4 mEq/L (5-15); Blood Urea Nitrogen 22 mg/dl (9-20); Carbon Dioxide 29 mmol/L (22.0-30.0); Estimated Glomerular Filt Rate 75 ml/min (>60); GFR (African American) 90 ML/MIN (>60)
[2020-11-28 08:42] LABS: Calcium 9.2 mg/dl (8.4-10.2); Glucose 108 mg/dl (74-100)
== END ==
PROVIDERS: Visit Provider Physician Assistant
DX: Z01.818 Encounter for other preprocedural examination (principal)
CPT/HCPCS: 36415; 80048

== ENCOUNTER → 2020-12-03 12:49 | Outpatient (CLI) | payer MEDICARE, SELFPAY ==
--- NOTE | 2020-12-03 12:49 | CT_ITS ---
PROCEDURE INFORMATION: Exam: CT Cervical Spine With Contrast Exam date and time: 12/03/2020 12:49 PM Age: 65 years old Clinical indication: Abnormal findings; Abnormal xray or scan of neck and cervical spine; Additional info: Abnormal mri appearance of c3/c4 TECHNIQUE: Imaging protocol: Computed tomography images of the cervical spine with intravenous contrast. Radiation optimization: All CT scans at this facility use at least one of these dose optimization techniques: automated exposure control; mA and/or kV adjustment per patient size (includes targeted exams where dose is matched to clinical indication); or iterative reconstruction. Contrast material: ISOVUE; Contrast volume: 75 ml; Contrast route: IV; COMPARISON: MR CERVICAL SPINE WO CON 10/31/2020 8:02 AM FINDINGS: Bones/joints: 3 mm anterolisthesis of C3 on C4. The facet joints demonstrate mild degenerative hypertrophy and sclerosis. Discs/Spinal canal/Neural foramina: The cervical spine demonstrates mild degenerative changes at multiple levels. Disc space narrowing and bilateral neural foraminal narrowing noted at C5-C6 and C6-C7. Lungs: Lung apices are normal. Soft tissues: Unremarkable. IMPRESSION: 1. 3 mm anterolisthesis of C3 on C4. 2. The cervical spine demonstrates mild degenerative changes at multiple levels.
== END ==
PROVIDERS: PCP Physician Assistant; Visit Provider Physician Assistant
DX: R93.7 Abnormal findings on diagnostic imaging of other parts of musculoskeletal system (principal); M54.2 Cervicalgia
CPT/HCPCS: 72126; Q9967

== ENCOUNTER → 2021-03-16 09:03 | Outpatient (POV) | payer MEDICARE, SELFPAY ==
[2021-03-16 09:30] VITALS: BP 133/87; PULSE 65; RESP 18; O2SAT 96; BMI 29.2
--- NOTE | 2021-03-16 10:25 | HMH.PMCON ---
Assessment and Plan (1) Neck pain Status: Acute Category: Medical Code(s): M54.2 - Cervicalgia (2) Right shoulder pain Status: Acute Category: Medical Code(s): M25.511 - Pain in right shoulder (3) Degenerative joint disease of cervical spine Status: Acute Category: Medical Code(s): M47.812 - Spondylosis without myelopathy or radiculopathy, cervical region (4) Cervical radiculopathy Status: Acute Category: Medical Code(s): M54.12 - Radiculopathy, cervical region - Assessment and plan all Dx Assessment and Plan for all problems:: Patient has deferred on injective therapy at this time. He is awaiting rotator cuff repair. We will order him diclofenac 75 mg 1 tablet p.o. twice daily. We will also order him compounding cream to apply topically to his shoulder. We will follow-up with him in 1 month for reevaluation of symptoms. If he has not been able to undergo surgical intervention right shoulder, he would likely benefit from a right shoulder injection. The patient is not having numbness tingling or pain into the right arm. He is limited with range of motion due to shoulder. Risks and benefits of the medication have been explained in detail to the patient. If side effects do present with the medication, she has been advised to stop the medication immediately and call the clinic. The patient has been advised to consult with his/her primary care provider and pharmacist regarding drug-drug interaction of medications currently prescribed. Patient has been instructed to contact the clinic with any concerns before the next appointment. Dr. Khoury has reviewed this note and agrees with this plan of care. This note was dictated using voice recognition software and make contain errors or omissions. HPI - Data of Consult Patient: new to practice Consult date: 03/16/21 Requesting Physician: Genesis Romano APRN - Consult Narrative Reason for consult: Right shoulder pain History of present illness: Mr. Morales is a 65 year old male who presents today for consultation for right shoulder pain. Patient was referred to us by Rosi Gaston PA-C. Patient says that he has been having right shoulder pain as well as right-sided neck pain. He is also having tinnitus, and left ear otalgia. He is following up with his primary care provider and is receiving antibiotics and eardrops for this. He says that he is having difficulty turning his head due to significant pain. He has limited range of motion to his right arm due to pain in the shoulder. He says he has stiffness in his neck, however, his right shoulder is where his pain is at its worse. He does rate his pain a 5 or 6 out of 10 with movement. Patient is scheduled for a rotator cuff repair, however, due to Covid, elective surgeries are on hold. Patient did undergo an MRI and due to concerns of abnormal marrow edema within the left facet at C3 and C4 with periarticular soft tissue edema, it was recommended the patient undergo a CT scan. Patient was also noted per MRI to have a compression fracture at T1 versus a bone lesion such as bone metastasis. Patient did have a CT scan that did not note any concerns for bone lesions or metastasis. Patient is awaiting surgical intervention to his rotator cuff. Due to this upcoming surgery, he would like to defer on any injective therapy at this time. He is not interested in controlled substances. Patient did cancel his initial appointment with us due to concerns of having to start oral opiates. Patient was advised by his primary care provider that our clinic offered interventional therapies and as result he did reschedule with us. He has undergone physical therapy, however, with limited relief. He does attempt home stretching, however, has limited range of motion with his right arm. He does use ice and heat therapies. CC: Genesis Romano APRN [facility] History I have reviewed the patient's past medical history: Yes Medical Hist
== END ==
PROVIDERS: Visit Provider Clinical Nurse Specialist Family Health
DX: M54.2 Cervicalgia (principal); M25.511 Pain in right shoulder; M47.812 Spondylosis without myelopathy or radiculopathy, cervical region; M54.12 Radiculopathy, cervical region
CPT/HCPCS: 99202; G0463

== ENCOUNTER → 2021-05-02 10:54 | Outpatient (CLI) | payer MEDICARE, SELFPAY | PROVIDERS: Visit Provider Surgery | DX: Z01.812 Encounter for preprocedural laboratory examination (principal); Z20.822 Contact with and (suspected) exposure to COVID-19; Z12.11 Encounter for screening for malignant neoplasm of colon | CPT/HCPCS: C9803; U0003; U0005 ==

== ENCOUNTER 2021-05-05 08:46 | Day surgery (SDC) | payer MEDICARE, SELFPAY ==
[2021-04-29 14:59] VITALS: BMI 29.2
[2021-05-05] VITALS (7 sets, daily range): BP systolic 107–139; BP diastolic 73–91; PULSE 51–69; RESP 18; TEMP 36.3–36.6; O2SAT 92–97
--- NOTE | 2021-05-05 09:03 | P.PN_ITS ---
[facility] Anesthesia Checklist - Patient Identification Patient Identification: Arm Band - Structural Data Admitted From: Home Planned Operative Procedure/s: Colonoscopy Consent for Planned Operative Procedure(s) Verified: Yes - NPO Status Verified Time NPO: 00:00 - Airway Assessment C-Spine Mobility Assessed: Yes TMJ Mobility Assessed: Yes - Neurological Assessment Level of Consciousness: Awake Hx Seizures: No Numbness or tingling in extremities: No [facility] History Medical History: Reports:: Coronary Artery Disease, Hyperlipidemia, Hypertension Denies:: Cancer, Diabetes Mellitus Type 1, Diabetes Mellitus Type 2, Internal Pacemaker, MRSA, Seizures *Have you ever received a pneumonia vaccine?: No *Have you received a flu vaccine this season?: Yes Other Medical History: Reports: Sinus Problems Laterality Cases: Bilateral: Tonsillectomy, Other Other Surgeries: Yes: Cardiac Catheterization, Cardiac Surgery, Colonoscopy, Coronary Stent, Skin Cancer Excision, Other. No: Pacemaker Amputation: No Fractures: No - *Social History Last grade of school completed: High school graduate Smoking Status: Never smoker Tobacco Type: cigarettes # Packs/Day (cigarettes): 1 Alcohol Intake: current Alcohol Intake Frequency:: 3 or more drinks per day Substance Use Type: denies use *Occupational Status:: employed Housing: house Household Members: spouse *Travel in the last 8 weeks: None Family Hx:: Cancer, Coronary Artery Disease, Diabetes
--- NOTE | 2021-05-05 09:23 | P.PN_ITS ---
[facility] Anesthesia Checklist - Patient Identification Patient Identification: Arm Band - Structural Data Admitted From: Home Planned Operative Procedure/s: colonoscopy Consent for Planned Operative Procedure(s) Verified: Yes Verified Documents: Surgical Consent, History and Physical - NPO Status Verified Time NPO: 00:00 - Additional verifications Anesthesia Reactions: No - Airway Assessment C-Spine Mobility Assessed: Yes (mp2) TMJ Mobility Assessed: Yes Dentition: Good Dentition - Neurological Assessment Level of Consciousness: Awake, Alert - Anesthesia Plan Anesthesia Risk discussed: Yes Anesthesia Plan: Verified ASA Class: III Anesthesia Type: MAC [facility] History I have reviewed the patient's past medical history: Yes Medical History: Reports:: Coronary Artery Disease, Hyperlipidemia, Hypertension, Myocardial Infarction Denies:: Cancer, Diabetes Mellitus Type 1, Diabetes Mellitus Type 2, Internal Pacemaker, MRSA, Seizures *Have you ever received a pneumonia vaccine?: No *Have you received a flu vaccine this season?: Yes Other Medical History: Reports: Sinus Problems Anesthesia experience/problems:: nac Laterality Cases: Bilateral: Tonsillectomy, Other Other Surgeries: Yes: Cardiac Catheterization, Cardiac Surgery, Colonoscopy, Coronary Stent, Skin Cancer Excision, Other. No: Pacemaker Amputation: No Fractures: No - *Social History Last grade of school completed: High school graduate Smoking Status: Never smoker Tobacco Type: cigarettes # Packs/Day (cigarettes): 1 Alcohol Intake: current Alcohol Intake Frequency:: 3 or more drinks per day Substance Use Type: denies use *Occupational Status:: employed Housing: house Household Members: spouse *Travel in the last 8 weeks: None Family Hx:: Cancer, Coronary Artery Disease, Diabetes
--- NOTE | 2021-05-05 11:28 | HMH.SCOPE ---
- Procedure: Date: 05/05/21 Patient Date of :: 1955 Procedure Performed:: Colonoscopy with polypectomy Indications:: History of colon polyps Positive Cologuard Performing Provider:: Talha Potter MD Referring Provider:: . Sedation:: Monitored anesthesia care Procedure:: After informed consent was obtained the patient was taken to the endoscopy suite. Sedation ensued after the patient was transferred to the left lateral decubitus position. Pulse, blood pressure, and oxygen saturation were monitored throughout the procedure. Digital rectal exam revealed no significant abnormality. The colonoscope was placed in position. The entire colon was evaluated. The colonoscope was carefully removed and the patient was transferred to recovery in stable condition. Please see findings and specimens below for detail. Findings:: Bowel preparation moderate Significant lack of relaxation Hemorrhoidal tags/cushions Lobulated small polyp at 45 cm (cold snare)-specimen not retrieved Large lobulated pedunculated polyp at 25 cm Specimens:: Large lobulated pedunculated polyp at 25 cm Recommendations:: Timing of repeat colonoscopy is pending pathology but likely be around 6-12 months secondary to size/nature of polyp at 25 cm, moderate bowel preparation, and nonretrievable small polyp at 45 cm. Complications:: No immediate Estimated blood obtained (mL): 1
== END 2021-05-05 12:30 | disposition home or self-care (01) ==
LOC: OUTP 08:48
PROVIDERS: PCP Physician Assistant; Visit Provider Surgery
PROC: 0DJD8ZZ Inspection of Lower Intestinal Tract, Via Natural or Artificial Opening Endoscopic (ICD-10-PCS; principal; 2021-05-05 10:00)
DX: Z86.010 Personal history of colon polyps (principal); K56.2 Volvulus; K64.9 Unspecified hemorrhoids; K63.5 Polyp of colon; I25.10 Atherosclerotic heart disease of native coronary artery without angina pectoris; E78.5 Hyperlipidemia, unspecified; I10 Essential (primary) hypertension; I25.2 Old myocardial infarction; Z85.828 Personal history of other malignant neoplasm of skin; Z80.9 Family history of malignant neoplasm, unspecified; Z83.3 Family history of diabetes mellitus; Z82.49 Family history of ischemic heart disease and other diseases of the circulatory system
CPT/HCPCS: 45385; 88305; J2704

== ENCOUNTER → 2021-05-28 10:48 | Outpatient (CLI) | payer MEDICARE, SELFPAY ==
--- NOTE | 2021-05-28 10:49 | US_ITS ---
PROCEDURE: US THYROID CLINICAL INDICATION: 6 mth f/u COMPARISON: CT CT LUNG SCREENING from 10/08/2020 US US THYROID from 10/31/2020 FINDINGS: Right lobe: 4.8 x 1.9 x 2.9 cm. 8 mm hypoechoic solid appearing nodule mid aspect of the right lobe laterally not significantly changed. Solid-appearing hypoechoic nodule mid aspect of the right lobe posteriorly at 13 x8 mm not significantly changed. Left lobe: 7 mm by 10 mm spongiform appearing nodule in the upper pole unchanged. New hypoechoic 7 x 7 mm nodule in the upper pole slightly taller than wide not previously demonstrated. There is through enhanced transmission of sound with no obvious calcifications. 4 mm cyst in the upper pole. 1 cm hypoechoic nodule in the mid polar region posteriorly with peripheral coarse calcification not significantly changed. Isthmus: Mildly thickened at 6 mm. Additional findings: IMPRESSION: No change right-sided thyroid nodules. New hypoechoic nodule on the left at 7 mm. Recommend six-month follow-up. Other left-sided nodules appear unchanged. Dictated by: Jose Carpio MD 05/28/2021 16:57 Jose Carpio MD in [place] 05/28/2021 16:57
== END ==
PROVIDERS: PCP Physician Assistant; Visit Provider Physician Assistant
DX: E04.1 Nontoxic single thyroid nodule (principal)
CPT/HCPCS: 76536

== ENCOUNTER → 2021-09-16 14:17 | Outpatient (CLI) | payer MEDICARE, SELFPAY ==
[2021-09-16 17:27] LABS: Alanine Aminotransferase 36 U/L (12-78); Albumin Level 4.5 g/dl (3.5-5.0); Alkaline Phosphatase 74 U/L (38-126); Aspartate Amino Transferase 36 U/L (17-59); Bilirubin,Total 0.7 mg/dl (0.2-1.3); Blood Urea Nitrogen 22 mg/dl (9-20); Calcium 9.8 mg/dl (8.4-10.2); Carbon Dioxide 29 mmol/L (22.0-30.0); Chloride 106 mmol/L (98-107); Chol/HDL Ratio 2.9 (1-3.5); Cholesterol 131 mg/dl (140-200); Estimated Glomerular Filt Rate 84 ml/min (>60); GFR (African American) 102 ML/MIN (>60); Globulin 2.3 g/dL (1.3-3.2); Glucose 97 mg/dl (74-100); HDL Cholesterol 45 mg/dl (40-60); Sodium 142 mmol/L (136-145); Total Protein,Serum 6.8 g/dl (6.3-8.2); Triglycerides 234 mg/dl (30-150); VLDL Cholesterol 47 mg/dL (0-40)
[2021-09-16 17:30] LABS: Basophils # 0.1 K/mm3 (0-0.2); Eosinophils # 0.1 K/mm3 (0.0-0.4); Eosinophils % 1.5 % (0.1-12.0); Hematocrit 46.4 % (42.0-52.0); Hemoglobin 15.3 g/dL (14.1-18.0); Lymphocytes # 1.7 K/mm3 (0.7-4.5); Lymphocytes % 28.4 % (10-50); Mean Corpuscular HGB Conc 33.1 g/dL (31.8-35.4); Mean Corpuscular Hemoglobin 32.5 pg (27.0-31.2); Mean Corpuscular Volume 98.1 fl (80-94); Mean Platelet Volume 9.2 fl (7.4-10.4); Monocytes # 0.6 K/mm3 (0.1-1.0); Monocytes % 10.6 % (1.7-9.3); Neutrophils # 3.5 K/mm3 (1.8-7.8); Neutrophils % 58.7 % (37.0-80.0); Platelet Count 269 K/mm3 (142-424); Red Blood Count 4.73 M/mm3 (4.60-6.20)
[2021-09-16 17:39] LABS: Direct LDL Cholesterol 59.97 mg/dL (100-129)
[2021-09-16 17:43] LABS: 25-OH Vitamin D, Total 41.8 ng/mL (30-100)
[2021-09-16 17:58] LABS: Prostate Specific Ag Screen 0.7 ng/ml (0.0-4.0); Thyroid Stimulating Hormone 1.47 uIU/mL (0.465-4.68)
== END ==
PROVIDERS: Visit Provider Physician Assistant
DX: I10 Essential (primary) hypertension (principal); E55.9 Vitamin D deficiency, unspecified
CPT/HCPCS: 80053; 80061; 82306; 84443; 85025; G0103

== ENCOUNTER → 2021-11-21 10:58 | Outpatient (CLI) | payer MEDICARE, SELFPAY | PROVIDERS: PCP Physician Assistant; Visit Provider Surgery | DX: Z01.812 Encounter for preprocedural laboratory examination (principal); Z20.822 Contact with and (suspected) exposure to COVID-19; Z12.11 Encounter for screening for malignant neoplasm of colon; Z86.010 Personal history of colon polyps | CPT/HCPCS: C9803; U0003; U0005 ==

== ENCOUNTER 2021-11-24 06:40 | Day surgery (SDC) | payer MEDICARE, SELFPAY ==
[2021-11-20 12:11] VITALS: BMI 28.5
[2021-11-24 07:12] VITALS: BP 118/79; PULSE 57; RESP 18; TEMP 36.3; O2SAT 96
[2021-11-24 07:28] VITALS: O2SAT 96
--- NOTE | 2021-11-24 07:43 | HMH.ANESCL ---
[facility] Anesthesia Checklist - Patient Identification Patient Identification: Arm Band - Structural Data Admitted From: Home Planned Operative Procedure/s: colonoscopy Consent for Planned Operative Procedure(s) Verified: Yes Verified Documents: Surgical Consent, History and Physical - NPO Status Verified Time NPO: 00:00 - Additional verifications Anesthesia Reactions: No - Airway Assessment C-Spine Mobility Assessed: Yes (mp2) TMJ Mobility Assessed: Yes Dentition: Good Dentition - Neurological Assessment Level of Consciousness: Awake, Alert - Anesthesia Plan Anesthesia Risk discussed: Yes Anesthesia Plan: Verified ASA Class: III Anesthesia Type: MAC [facility] History I have reviewed the patient's past medical history: Yes Medical History: Reports:: Coronary Artery Disease, Hyperlipidemia, Hypertension, Myocardial Infarction Denies:: Cancer, Diabetes Mellitus Type 1, Diabetes Mellitus Type 2, Internal Pacemaker, MRSA, Seizures *Have you ever received a pneumonia vaccine?: No *Have you received a flu vaccine this season?: No Other Medical History: Reports: Sinus Problems Anesthesia experience/problems:: nac Laterality Cases: Bilateral: Tonsillectomy, Other Other Surgeries: Yes: Cardiac Catheterization, Cardiac Surgery, Colonoscopy, Coronary Stent, Skin Cancer Excision, Other. No: Pacemaker Amputation: No Fractures: No - *Social History Last grade of school completed: High school graduate Smoking Status: Never smoker Tobacco Type: cigarettes # Packs/Day (cigarettes): 1 Alcohol Intake: current Alcohol Intake Frequency:: 3 or more drinks per day Substance Use Type: denies use *Occupational Status:: employed Housing: house Household Members: spouse *Travel in the last 8 weeks: None Family Hx:: Cancer, Coronary Artery Disease, Diabetes
--- NOTE | 2021-11-24 08:07 | HMH.SCOPE ---
- Procedure: Date: 11/24/21 Patient Date of :: 1955 Procedure Performed:: Colonoscopy with polypectomy Indications:: History of colon polyps. 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 Performing Provider:: Talha Potter MD Referring Provider:: . Sedation:: Monitored anesthesia care Procedure:: After informed consent was obtained the patient was taken to the endoscopy suite. Sedation ensued after the patient was transferred to the left lateral decubitus position. Pulse, blood pressure, and oxygen saturation were monitored throughout the procedure. Digital rectal exam revealed no significant abnormality. The colonoscope was placed in position. The entire colon was evaluated. The colonoscope was carefully removed and the patient was transferred to recovery in stable condition. Please see findings and specimens below for detail. Findings:: Hemorrhoidal tags/cushions Bowel preparation fair Moderate lack of relaxation Polyps (see specimens) Specimens:: Transverse colon polyp (cold snare) Polyp at 40 cm (cold snare) Recommendations:: Timing of repeat colonoscopy is pending pathology will likely be between 2-3 years secondary to history of large complex polyp with focal high-grade dysplasia, polyps noted on short-term repeat colonoscopy, and moderate lack of relaxation. Complications:: No immediate Estimated blood obtained (mL): 1
[2021-11-24 08:08] VITALS: BP 117/79; PULSE 65; RESP 16; TEMP 36.1; O2SAT 95
[2021-11-24 08:18] VITALS: BP 116/62; PULSE 53; RESP 16; TEMP 36.1; O2SAT 93
[2021-11-24 08:28] VITALS: BP 105/78; PULSE 58; RESP 18; TEMP 36.1; O2SAT 97
[2021-11-24 08:38] VITALS: BP 121/60; PULSE 58; RESP 18; TEMP 36.1; O2SAT 97
== END 2021-11-24 08:38 | disposition home or self-care (01) ==
LOC: OUTP 06:42
PROVIDERS: PCP Physician Assistant; Visit Provider Surgery
PROC: 0DJD8ZZ Inspection of Lower Intestinal Tract, Via Natural or Artificial Opening Endoscopic (ICD-10-PCS; principal; 2021-11-24 07:30)
DX: K63.5 Polyp of colon (principal); Z86.010 Personal history of colon polyps; I25.10 Atherosclerotic heart disease of native coronary artery without angina pectoris; I10 Essential (primary) hypertension; E78.5 Hyperlipidemia, unspecified; I25.2 Old myocardial infarction; Z79.899 Other long term (current) drug therapy
CPT/HCPCS: 45385; 88305; J2704

== ENCOUNTER → 2021-12-04 13:29 | Outpatient (CLI) | payer MEDICARE, SELFPAY ==
--- NOTE | 2021-12-04 13:29 | US_ITS ---
FINAL REPORT CLINICAL HISTORY: 7mm thyroid nodule FINDINGS: THYROID ULTRASOUND Sonographic images of the thyroid was obtained. The right lobe of the thyroid is enlarged and measures 4.9 x 2.5 x 2.0 cm. The left lobe of the thyroid measures 5.4 x 2.6 x 2.2 cm. The isthmus measures 5 mm. In the right lobe of the thyroid there is an 11 x 13 x 9 mm cystic solid hypoechoic nodule that is consistent with TI-RADS category 2. There is another nodule in the right lobe of the thyroid measuring 10 x 8 x 6 mm that appears cystic and is consistent with TI-RADS category 1. In the left upper lobe of the thyroid there is an 11 mm solid hypoechoic nodule sent with TI-RADS category 4. In the left mid lobe of the thyroid there is a 1.5 cm peripherally calcified nodule. The internal composition cannot be determined. IMPRESSION: Multiple thyroid nodules as described with left upper lobe thyroid stent with TI-RADS category 4. Recommend continued follow-up in 6-12 months. Reviewed, Interpreted and Dictated by Sreedhar Braden III, MD Transcribed by Genesis Escalona Authenticated and [facility]
== END ==
PROVIDERS: PCP Physician Assistant; Visit Provider Physician Assistant
DX: E04.1 Nontoxic single thyroid nodule (principal)
CPT/HCPCS: 76536

== ENCOUNTER → 2022-05-18 09:28 | Outpatient (CLI) | payer MEDICARE, SELFPAY ==
[2022-05-18 11:10] LABS: Alanine Aminotransferase 36 U/L (12-78); Albumin Level 4.6 g/dl (3.5-5.0); Alkaline Phosphatase 101 U/L (38-126); Aspartate Amino Transferase 37 U/L (17-59); Bilirubin,Direct 0.1 mg/dl (0.0-0.4); Bilirubin,Indirect 0.5 mg/dL (0.0-0.9); Bilirubin,Total 0.6 mg/dl (0.2-1.3); Bilirubin,Unconjugated 0.5 mg/dL (0.0-1.1); Chol/HDL Ratio 3.4 (1-3.5); Cholesterol 136 mg/dl (140-200); HDL Cholesterol 40 mg/dl (40-60); Total Protein,Serum 7.3 g/dl (6.3-8.2); Triglycerides 143 mg/dl (30-150); VLDL Cholesterol 29 mg/dL (0-40)
[2022-05-18 11:22] LABS: Direct LDL Cholesterol 72.92 mg/dL (100-129)
== END ==
PROVIDERS: PCP Physician Assistant; Visit Provider Nurse Practitioner
DX: I50.33 Acute on chronic diastolic (congestive) heart failure (principal); E78.01 Familial hypercholesterolemia; I25.10 Atherosclerotic heart disease of native coronary artery without angina pectoris
CPT/HCPCS: 36415; 80061; 80076

== ENCOUNTER → 2022-09-29 12:36 | Outpatient (CLI) | payer MEDICARE, SELFPAY ==
--- NOTE | 2022-09-29 12:46 | US_ITS ---
FINAL REPORT CLINICAL HISTORY: Thyroid nodule COMPARISON: 12/04/2021 FINDINGS: The right lobe of the thyroid measures up to 4.5 cm. There is a cystic and solid nodule in the right thyroid lobe measuring 14 x 11 x 10 mm consistent with TI-RADS category 2. There is a 2nd nodule measuring 8 x 7 x 6 mm, previously measured 10 x 8 x 6 mm. This now has an increased echogenicity area within it of uncertain etiology. Findings consistent with TI-RADS category 4. The left lobe of the thyroid measures up to 4.9 cm. There is a nodule in the upper left thyroid lobe measuring 8 x 7 x 4 mm, previously measured 9 x 5 x 6 mm consistent with TI-RADS category 4. There is a 2nd nodule measuring 15 x 10 x 9 mm with peripheral calcification. The internal composition is not determined. Several other bilateral thyroid nodules are visually stable. The isthmus measures 0.66 cm. IMPRESSION: Bilateral thyroid nodules, overall appearance has slightly changed since the previous exam. Consider additional follow-up in 12 months. Reviewed, Interpreted and Dictated by Sreedhar Bradne III, MD Transcribed by Idalmis Pablo Authenticated and [facility]
== END ==
PROVIDERS: PCP Physician Assistant; Visit Provider Physician Assistant
DX: E04.1 Nontoxic single thyroid nodule (principal)
CPT/HCPCS: 76536

== ENCOUNTER → 2022-10-25 12:43 | Outpatient (CLI) | payer MEDICARE, SELFPAY ==
[2022-10-25 13:41] LABS: Basophils % 0.4 % (0.1-2.0); Eosinophils # 0.2 K/mm3 (0.0-0.4); Eosinophils % 1.8 % (0.1-12.0); Hematocrit 44.1 % (42.0-52.0); Hemoglobin 14.4 g/dL (14.1-18.0); Lymphocytes # 2.1 K/mm3 (0.7-4.5); Lymphocytes % 25.2 % (10-50); Mean Corpuscular HGB Conc 32.6 g/dL (31.8-35.4); Mean Corpuscular Hemoglobin 30.8 pg (27.0-31.2); Mean Corpuscular Volume 94.4 fl (80-94); Mean Platelet Volume 7.1 fl (7.4-10.4); Monocytes # 0.9 K/mm3 (0.1-1.0); Neutrophils # 5.3 K/mm3 (1.8-7.8); Neutrophils % 62.5 % (37.0-80.0); Platelet Count 422 K/mm3 (142-424); Red Blood Count 4.67 M/mm3 (4.60-6.20); Red Cell Distribution Width 12.7 % (11.5-17.5); White Blood Count 8.4 K/mm3 (4.8-10.8)
[2022-10-25 14:04] LABS: C-Reactive Protein 30.8 mg/L (0-4)
[2022-10-25 14:54] LABS: Erythrocyte Sedimentation Rate 34 mm/hr (0-20)
[2022-10-29 12:11] LABS: Alanine Aminotransferase 28 U/L (12-78); Albumin Level 3.9 g/dl (3.5-5.0); Albumin/Globulin Ratio 1.4 (1.1-1.8); Alkaline Phosphatase 100 U/L (38-126); Anion Gap 18.4 mEq/L (5-15); Aspartate Amino Transferase 34 U/L (17-59); Bilirubin,Total 0.5 mg/dl (0.2-1.3); Blood Urea Nitrogen 16 mg/dl (9-20); Calcium 9.5 mg/dl (8.4-10.2); Carbon Dioxide 26 mmol/L (22.0-30.0); Chloride 97 mmol/L (98-107); Chol/HDL Ratio 2.3 (1-3.5); Cholesterol 100 mg/dl (140-200); Estimated Glomerular Filt Rate 84 ml/min (>60); GFR (African American) 102 ML/MIN (>60); Globulin 2.7 g/dL (1.3-3.2); Glucose 78 mg/dl (74-100); HDL Cholesterol 44 mg/dl (40-60); Potassium 4.4 mmoL/L (3.5-5.1); Sodium 137 mmol/L (136-145); Total Protein,Serum 6.6 g/dl (6.3-8.2); Triglycerides 131 mg/dl (30-150); VLDL Cholesterol 26 mg/dL (0-40)
[2022-10-29 12:22] LABS: Direct LDL Cholesterol 48.82 mg/dL (100-129)
[2022-10-29 12:41] LABS: Prostate Specific Ag Screen 1.3 ng/ml (0.0-4.0)
== END ==
PROVIDERS: Emergency Medicine; PCP Physician Assistant
DX: R07.89 Other chest pain (principal); I50.33 Acute on chronic diastolic (congestive) heart failure; I10 Essential (primary) hypertension; Z12.5 Encounter for screening for malignant neoplasm of prostate; M54.16 Radiculopathy, lumbar region
CPT/HCPCS: 36415; 80053; 80061; 84443; 85025; 85651; 86140; G0103

== ENCOUNTER → 2022-11-03 13:58 | Outpatient (CLI) | payer MEDICARE, SELFPAY ==
--- NOTE | 2022-11-03 13:58 | US_ITS ---
PROCEDURE INFORMATION: Exam: US Left Breast, Complete US Right Breast, Complete Exam date and time: 11/03/2022 2:21 PM Age: 66 years old Clinical indication: Bilateral axillary palpable abnormalities: Gynecomastia TECHNIQUE: Imaging protocol: Complete ultrasound of all four quadrants of the left breast and the retroareolar regions, including ultrasound of the axilla when performed. Complete ultrasound of all four quadrants of the right breast and the retroareolar regions, including ultrasound of the axilla when performed. COMPARISON: US BREAST LT COMPLETE 09/22/2020 10:35 AM FINDINGS: Breast: Sonographic images of both breasts including the retroareolar regions, all 4 quadrants and the axilla do not demonstrate any solid or cystic masses. No evidence retroareolar gynecomastia. No architectural distortion or acoustical shadowing. No skin thickening or axillary adenopathy. No focal findings in either axilla where the patient reports bilateral palpable abnormalities IMPRESSION: Diagnostic bilateral mammogram is recommended for full evaluation of bilateral palpable abnormalities in both axilla as well as full evaluation of the clinical suspicion of gynecomastia not well appreciated on sonography. ASSESSMENT: BI-RADS Category 0: Incomplete- Need Additional Imaging Evaluation and/or Prior Mammograms for Comparison
--- NOTE | 2022-11-03 14:10 | CT_ITS ---
FINAL REPORT TECHNIQUE: Axial images were obtained from the lung apex to the mid abdomen by computed tomography. This study was performed with techniques to keep radiation doses as low as reasonably achievable (ALARA). Individualized dose reduction techniques using automated exposure control or adjustment of mA and/or kV according to the patient's size were employed. CLINICAL HISTORY: lung cancer screening PREVIOUS SMOKER 1 OR LESS PPD X 45 YEARS, QUIT 6 YEARS AGO COMPARISON: 10/08/2020 FINDINGS: CHEST CT LOW DOSE CTDI vol (mGy): 2.90 DLP (mGy-cm): 99.51 There is no axillary adenopathy. There is no hilar or mediastinal adenopathy. There is a calcified nodule in left thyroid lobe. The heart is normal in size. There is no pericardial or pleural effusion. There is a stable 4 mm nodule in the left lower lobe. Mild scarring is identified. There are calcified granulomas in the right lung base. Limited images of the upper abdomen are unremarkable. IMPRESSION: Lung RADS category 1. Recommend 12 month follow-up low-dose chest CT. Reviewed, Interpreted and Dictated by Sreedhar Braden III, MD Transcribed by Idalmis Pablo Authenticated and [facility]
== END ==
LOC: RAD 13:58
PROVIDERS: PCP Physician Assistant; Visit Provider Physician Assistant
DX: N62 Hypertrophy of breast (principal); Z87.891 Personal history of nicotine dependence; Z12.2 Encounter for screening for malignant neoplasm of respiratory organs; N64.89 Other specified disorders of breast
CPT/HCPCS: 71271; 76641

== ENCOUNTER → 2022-11-16 13:45 | Outpatient (CLI) | payer MEDICARE, SELFPAY ==
--- NOTE | 2022-11-16 13:45 | MM_ITS ---
PROCEDURE INFORMATION: Exam: Bilateral Diagnostic Breast Tomosynthesis Exam date and time: 11/16/2022 1:42 PM Age: 66 years old Clinical indication: PT C/O puffiness under arms TECHNIQUE: Imaging protocol: Bilateral Diagnostic tomosynthesis and 2D mammography including computer-aided detection (CAD) when performed. Unilateral or bilateral exam. COMPARISON: 1. US BREAST LT COMPLETE 11/03/2022 2:21 PM 2. US BREAST RT COMPLETE 11/03/2022 2:16 PM FINDINGS: MAMMOGRAPHY: The breast tissue is almost entirely fatty. There is no breast tissue. No axillary adenopathy where the patient reports palpable abnormalities. Several fat containing benign-appearing axillary lymph nodes are noted bilaterally. There is no stellate mass, architectural distortion or suspicious microcalcifications in either breast to suggest malignancy. IMPRESSION: No mammographic evidence of malignancy. No axillary adenopathy.Further evaluation of a palpable abnormality should be based on clinical grounds regardless of radiographic findings or lack thereof. ASSESSMENT: BI-RADS Category 1: Negative
== END ==
PROVIDERS: PCP Physician Assistant; Visit Provider Physician Assistant
DX: N62 Hypertrophy of breast (principal)
CPT/HCPCS: 77062; 77066; G0279

== ENCOUNTER → 2023-05-19 09:27 | Outpatient (CLI) | payer MEDICARE, SELFPAY ==
[2023-05-19 19:48] LABS: Basophils % 0.6 % (0.1-2.0); Eosinophils # 0.1 K/mm3 (0.0-0.4); Eosinophils % 2.4 % (0.1-12.0); Hematocrit 47.6 % (42.0-52.0); Hemoglobin 16.2 g/dL (14.1-18.0); Lymphocytes % 33.9 % (10-50); Mean Corpuscular Hemoglobin 32.6 pg (27.0-31.2); Mean Corpuscular Volume 95.8 fl (80-94); Mean Platelet Volume 8.8 fl (7.4-10.4); Monocytes # 0.5 K/mm3 (0.1-1.0); Neutrophils # 3.2 K/mm3 (1.8-7.8); Platelet Count 261 K/mm3 (142-424); Red Blood Count 4.97 M/mm3 (4.60-6.20); Red Cell Distribution Width 13.4 % (11.5-17.5); White Blood Count 5.8 K/mm3 (4.8-10.8)
[2023-05-19 20:02] LABS: Alanine Aminotransferase 41 U/L (12-78); Albumin Level 4.6 g/dl (3.5-5.0); Albumin/Globulin Ratio 1.8 (1.1-1.8); Alkaline Phosphatase 89 U/L (38-126); Aspartate Amino Transferase 39 U/L (17-59); Bilirubin,Total 0.7 mg/dl (0.2-1.3); Blood Urea Nitrogen 16 mg/dl (9-20); Calcium 9.5 mg/dl (8.4-10.2); Carbon Dioxide 26 mmol/L (22.0-30.0); Chloride 103 mmol/L (98-107); Cholesterol 155 mg/dl (140-200); Estimated Glomerular Filt Rate 74 ml/min (>60); GFR (African American) 90 ML/MIN (>60); Globulin 2.6 g/dL (1.3-3.2); Glucose 90 mg/dl (74-100); Total Protein,Serum 7.2 g/dl (6.3-8.2); Triglycerides 103 mg/dl (30-150); VLDL Cholesterol 21 mg/dL (0-40)
[2023-05-19 20:05] LABS: Anion Gap 13.1 mEq/L (5-15); Chol/HDL Ratio 2.9 (1-3.5); HDL Cholesterol 53 mg/dl (40-60); Potassium 4.1 mmoL/L (3.5-5.1); Sodium 138 mmol/L (136-145)
[2023-05-19 20:21] LABS: 25-OH Vitamin D, Total 42.2 ng/mL (30-100)
[2023-05-19 20:33] LABS: Thyroid Stimulating Hormone 1.53 uIU/mL (0.465-4.68)
== END ==
PROVIDERS: PCP Physician Assistant; Visit Provider Physician Assistant
DX: E55.9 Vitamin D deficiency, unspecified (principal); E66.9 Obesity, unspecified; I10 Essential (primary) hypertension; Z68.32 Body mass index [BMI] 32.0-32.9, adult; Z79.899 Other long term (current) drug therapy
CPT/HCPCS: 80053; 80061; 82306; 84443; 85025

== ENCOUNTER → 2024-01-13 08:37 | Outpatient (CLI) | payer MEDICARE, SELFPAY | LOC: SL 08:38 | PROVIDERS: PCP Nurse Practitioner Family; Visit Provider Nurse Practitioner Family | DX: G47.36 Sleep related hypoventilation in conditions classified elsewhere (principal); G47.33 Obstructive sleep apnea (adult) (pediatric) | CPT/HCPCS: G0399 ==

== ENCOUNTER 2024-03-30 07:57 | Outpatient (CLI) | payer MEDICARE, SELFPAY ==
--- NOTE | 2024-03-30 08:02 | CT_ITS ---
PROCEDURE INFORMATION: Exam: CT Abdomen And Pelvis With Contrast Exam date and time: 03/30/2024 8:33 AM Age: 68 years old Clinical indication: Abdominal pain; Localized; Left upper quadrant (luq); Additional info: Luq pain TECHNIQUE: Imaging protocol: Computed tomography of the abdomen and pelvis with contrast. Radiation optimization: All CT scans at this facility use at least one of these dose optimization techniques: automated exposure control; mA and/or kV adjustment per patient size (includes targeted exams where dose is matched to clinical indication); or iterative reconstruction. Contrast material: ISOVUE; Contrast volume: 75 ml; Contrast route: IV; COMPARISON: CT LUNG SCREENING 11/03/2022 2:32 PM FINDINGS: Lungs: 4 mm pulmonary nodule in the left lower lobe series 2, image 14. Coronary arteries: Coronary artery calcifications may indicate coronary artery disease. Liver: Normal. No mass. Gallbladder and biliary ducts: Normal. No calcified stones. No ductal dilation. Pancreas: Normal. No ductal dilation. Spleen: Normal. No splenomegaly. Adrenal glands: Normal. No mass. Kidneys and ureters: There is no evidence of renal or ureteral calcifications. Stomach and bowel: Mild diverticulosis of the rectosigmoid. No diverticulitis. Appendix: Normal appendix Intraperitoneal space: Unremarkable. No free air. No significant fluid collection. Vasculature: Unremarkable. No abdominal aortic aneurysm. Lymph nodes: Unremarkable. No enlarged lymph nodes. Urinary bladder: Unremarkable as visualized. Reproductive: Unremarkable as visualized. Bones/joints: Unremarkable. No acute fracture. Soft tissues: Unremarkable. IMPRESSION: 4 mm pulmonary nodule in the left lower lobe series 2, image 14. For patients at low risk (minimal or absent history of smoking and of other known risk factors), no routine follow-up is indicated. For patients at high risk (history of smoking or of other known risk factors), consider optional CT Chest at 12 months. (Reference: Cherise) References: Cherise Mcdonald, et al. Guidelines for Management of Incidental Pulmonary Nodules Detected on CT Images: From the Fleischner Society 2017. Radiology. 2017;284(1):228-243.
[2024-03-30 08:25] LABS: Blood Urea Nitrogen 14 mg/dl (9-20); Estimated Glomerular Filt Rate 74 ml/min (>60); GFR (African American) 89 ML/MIN (>60)
[2024-03-30] MEDS: IOPAMIDOL-370 (76%);100ML BOTTLE 75 ML IV (08:45)
[2024-03-30] MEDS: SODIUM CHLORIDE 0.9% 10ML SYR (RAD ONLY) 10 ML IV (08:45)
== END 2024-03-30 23:59 | disposition home or self-care (01) ==
LOC: RAD 07:58
PROVIDERS: PCP Nurse Practitioner Family; Visit Provider Surgery
DX: R10.12 Left upper quadrant pain (principal)
CPT/HCPCS: 36415; 74177; 82565; 84520; Q9967

== ENCOUNTER 2024-10-17 10:58 | Outpatient (CLI) | payer MEDICARE, SELFPAY ==
--- NOTE | 2024-10-17 11:00 | CT_ITS ---
FINAL REPORT TECHNIQUE: Thin section axial images were obtained through the lungs using a low-dose technique per lung cancer screening protocol. Reconstruction images were obtained using the axial data. This study was performed with techniques to keep radiation doses as low as reasonably achievable, (ALARA). Individualized dose reduction techniques using automated exposure control or adjustment of mA and/or kV according to the patient's size were employed. CLINICAL HISTORY: Lung cancer screening Former smoker 8 years ago 1 pack a day x 50 years COMPARISON: 11/03/2022 FINDINGS: CTDLvol: 2.90 DLP: 104.73 Lungs: The lungs are clear. No suspicious nodules or masses. There is evidence of prior granulomatous disease. Lymph nodes: A calcified left thyroid nodule is noted. There is no lymphadenopathy. Mediastinum: Heart size is normal. There are prominent coronary artery calcifications. Pleura/pericardium: No pleural or pericardial effusion. Other: No acute abnormality in the upper abdomen. IMPRESSION: No suspicious pulmonary nodules or masses. Prominent coronary artery calcifications. Lung RADS: 1S Modifier S: Coronary artery calcifications Recommendation: 12-month follow-up low-dose CT Reviewed, Interpreted and Dictated by Sarita Mcgarry MD Transcribed by Melisa Goddard Authenticated and [facility]
== END 2024-10-17 23:59 | disposition home or self-care (01) ==
LOC: RAD 10:58
PROVIDERS: PCP Internal Medicine; Visit Provider Internal Medicine
DX: Z87.891 Personal history of nicotine dependence (principal)
CPT/HCPCS: 71271

== ENCOUNTER 2024-11-15 09:20 | Outpatient (CLI) | payer MEDICARE, SELFPAY ==
--- OUTSIDE RECORDS SUMMARY | 2023-07-04 11:29 | XMS_ITS | Continuity of Care Document ---
Author Organization [facility] Address [address] [place] [address] Phone Care Team Providers Care Food Operations Manager Name Role Phone Yayo Mueller MD Unavailable Unavailable Allergies, Adverse Reactions, Alerts Substance Reaction Status Criticality No Known Allergies Active No Inform ation Medications Medication Instructions Dosage Effective Dates (start - stop) Status Comments gabapentin 300 mg capsule take 1 tablet by mouth nightly as needed for Pain,Severe 7-10 On Pain Scale - Active M54.16 gabapentin 300 mg capsule take 1 capsule by oral route every bedtime for Pain,Severe 7-10 On Pain Scale 300 MG - Active tramadol 50 mg tablet take 1 tablet by o ral route every 6 hours as needed as needed for Pain,Severe 7-10 On Pain Scale 50 MG - Active M54.16 Procedures Procedure Date Office/outpatient visit,est, mod 2022 Njx interlaminar lmbr/sac Dexamethasone sodium phos Office/outpatient visit,new, mod 2022 Office/outpatient visit,est, mod 2022 Tlso flex trnk sj-ss pre ots MRI Lumbar Spine wo Contrast Office/outpatient visit,new, mod 2022 X-ray exam lwr spine, min 4 views Advance Directives Directive Yes / No Effective Date File Name No Information Encounters Encounter Description Practice Location Reason(s) For Visit Diagnoses Date Provider Providers Copied on Encounter [facility] [place], [facility] [place] [place], [address], [place] tel:[phone] [facility] No Information 4 Ervin Zee. [address] [place] [address], [address], . tel:[phone] Referring Provider: Yayo Mueller, [address] [place] [address], [facility]. tel:[phone] Office/outpa tient visit,[facility], [address] [place] [address], [address], [place] tel:[phone] [facility] Radiculopathy, lumbar regionSpondylo lysis, lumbar region 3 Jose Sanjuana. [address] [place] [address], [address], [place]. tel:[phone] Referring Provider: Yayo Mueller, [address] [place] [address], [facility]. tel:[phone] [facility], [address] [place] [address], [address], [place] tel:[phone] [facility] Radiculopathy, lumbar region 3 Shima Lyndon. [address] [place], [place], [id number], [place]. tel:[phone] Referring Provider: Yayo Mueller, [address] [place] [address], [facility]. tel:[phone] Office/outpa tient visit,[facility], [address] [place] [address], [address], [place] tel:[phone] [facility] Spondylolysis, lumbar regionRadiculo evelyn, lumbar region 3 Jose Sanjuana. [address] [place] [address], [address], [place]. tel:[phone] Referring Provider: Yayo Mueller, [address] [place] [address], [facility]. tel:[phone] Office/outpa tient visit,[facility], [address] [place], [address], tel:[phone] [facility] Spondylolysis, lumbar region 3 Ervin Zee. [address] [place] [address], [facility], . tel:[phone] Referring Provider: Yayo Mueller, [address] [place] [address]. tel:[phone] [facility], [address], [place], [facility], tel:[phone] [place] [address] No Information 3 Ervin Zee. [address] [place] [address], [facility], . tel:[phone] Referring Provider: Yayo Mueller, [address] [place] [address]. tel:[phone] [facility], [address] [place], [place], [facility], tel:[phone] [place] [address] No Information 3 Ervin Zee. [address] [place] [address], [facility], . tel:[phone] Referring Provider: Yayo Mueller, [address] [place] [address]. tel:[phone] Office/outpa tient visit,[facility], [address] [place] [address], [facility], tel:[phone] [facility] Spondylolysis, lumbar regionBilatera l primary osteoarthritis of hip 3 Ervin Zee. [address] [place] [address], . tel:[phone] Referring Provider: Yayo Mueller, [address] [place] [address]. tel:[phone] Family History Family Member Type Diagnosis Age At Onset Brother Problem (finding) Congenital heart diseas e Mother Problem (finding) Family history of Hyper lipidemia Brother Problem (finding) Hypertension Father Problem (finding) Hypertension Father Problem (finding) Family history of Hyper lipidemia Sister Problem (finding) Cancer Mother Problem (finding) Hypertension Mother Problem (finding) Cancer Brother Problem (finding) Diabetes mellitus Brother Problem (finding) Family history of Hyper lipidemia Mother Problem (finding) Depression Father Problem (finding) Congenital heart diseas e Father Problem (finding) Cancer Payers Payer name Insurance type Covered democrat ID Cris moran(s) [employer] Medicare - [id number] Social History Type Description Quantity Date Captured Comments Alcohol Use Details Unknown Caffeine Use Details Unknown Tobacco Use Status No Information Smoking Status No Information Sex Male Sexual Orientation Straight or heterosexual October Gender Identity Male Chief Complaint And Reason For Visit No Information Reason For Referral Reason For Referral No Information History Of Present Illness Encounter Date Complaint History Of Prese nt Illness back pain Functional Status Date Functional Assessmen t No Information Instructions Date Instruction Additional Infor mation No Information Assessments Type Assessment Date No Information Patient Care Teams Name Effective Dates (start - stop) Status Members No Information
[2024-11-15 14:30] LABS: Basophils % 0.8 % (0.1-2.0); Eosinophils # 0.1 Kmm3 (0.0-0.4); Eosinophils % 1.7 % (0.1-12.0); Hematocrit 46.3 % (42.0-52.0); Hemoglobin 15.5 g/dL (14.1-18.0); Immature Granulocytes # 0.02 10^3uL; Immature Granulocytes % 0.4 %; Lymphocytes # 1.6 K/mm3 (0.7-4.5); Lymphocytes % 30.8 % (10-50); Mean Corpuscular HGB Conc 33.5 g/dL (31.8-35.4); Mean Corpuscular Hemoglobin 31.4 pg (27.0-31.2); Mean Corpuscular Volume 93.7 fl (80-94); Mean Platelet Volume 9.5 fl (7.4-10.4); Monocytes # 0.7 K/mm3 (0.1-1.0); Monocytes % 14.1 % (1.7-9.3); Neutrophils # 2.7 K/mm3 (1.8-7.8); Neutrophils % 52.2 % (37.0-80.0); Nucleated Red Blood Cells # 0 10^3/uL; Nucleated Red Blood Cells % 0 %; Platelet Count 238 K/mm3 (142-424); Red Blood Count 4.94 M/mm3 (4.60-6.20); Red Cell Distribution Width 13.3 % (11.5-17.5); Red Cell Distribution Width-SD 46.1 fL; White Blood Count 5.2 K/mm3 (4.8-10.8)
[2024-11-15 15:54] LABS: Alanine Aminotransferase 34 U/L (12-78); Albumin Level 4.6 g/dl (3.5-5.0); Albumin/Globulin Ratio 1.9 (1.1-1.8); Alkaline Phosphatase 82 U/L (38-126); Anion Gap 14.2 mEq/L (5-15); Aspartate Amino Transferase 38 U/L (17-59); Bilirubin,Total 0.8 mg/dl (0.2-1.3); Blood Urea Nitrogen 17 mg/dl (9-20); Calcium 9.9 mg/dl (8.4-10.2); Carbon Dioxide 31 mmol/L (22.0-30.0); Chloride 102 mmol/L (98-107); Chol/HDL Ratio 3.4 (1-3.5); Cholesterol 175 mg/dl (140-200); Estimated Glomerular Filt Rate 74 ml/min (>60); GFR (African American) 89 ML/MIN (>60); Globulin 2.4 g/dL (1.3-3.2); Glucose 90 mg/dl (74-100); HDL Cholesterol 52 mg/dl (40-60); Potassium 5.2 mmoL/L (3.5-5.1); Sodium 142 mmol/L (136-145); Triglycerides 138 mg/dl (30-150); VLDL Cholesterol 28 mg/dL (0-40)
[2024-11-15 16:05] LABS: Direct LDL Cholesterol 91.78 mg/dL (100-129)
[2024-11-15 16:25] LABS: HIV Combo NEGATIVE (Negative)
[2024-11-15 16:31] LABS: Hepatitis C Ab Qual. W/ RFX NEGATIVE (Negative)
[2024-11-15 21:41] LABS: Hemoglobin A1C 5.6 % (4.0-6.0)
--- OUTSIDE RECORDS SUMMARY | 2024-11-16 12:53 | XMS_ITS | Clinical Summary ---
Author Organization [facility] Address [address] [place] [phone] Phone Care Team Providers Care Security Operations Specialist Name Role Phone Unavailable Primary Care Provider Unavailabl e Allergies No known active allergies Medications cyclobenzaprine (FLEXERIL) 5 mg Oral Tablet Take 5 mg by mouth nightly. 10/14/2022 Active eplerenone (INSPRA) 25 mg Oral Tablet Take 25 mg by mouth daily. 09/22/2022 Active ezetimibe (ZETIA) 10 mg Oral Tablet Take 10 mg by mouth nightly. 08/19/2022 Active Fenofibric Acid 45 mg Oral Capsule, Delayed Release(E.C.) Take 45 mg by mouth nightly. 10/25/2022 Active fUROsemide (LASIX) 40 mg Oral Tablet Take 40 mg by mouth daily. 10/06/2022 Active gabapentin (NEURONTIN) 300 mg Oral Capsule Take 300 mg by mouth nightly. 10/21/2022 Active losartan (COZAAR) 50 mg Oral Tablet Take 50 mg by mouth daily. 08/19/2022 Active metoprolol succinate (TOPROL-XL) 25 mg Oral Tablet Sustained Release 24 hr Take 25 mg by mouth nightly. 10/25/2022 Active ranolazine (RANEXA) 500 mg Oral Tablet Sustained Release 12 hr Take 500 mg by mouth 2 times daily. 10/07/2022 Active rosuvastatin (CRESTOR) 40 mg Oral Tablet Take 40 mg by mouth nightly. 10/21/2022 Active Active Problems Problem Noted Date Diagnosed Date Coronary artery disease invo lving [place] coronary artery of [place] heart without angina pectoris 11/05/2022 HLD (hyperlipidemia) 11/05/2022 Alcohol abuse 11/04/2022 Discitis 11/03/2022 Chronic low back pain with sciatica Surgical History Surgery Date Site/Laterality Comments CARDIAC SURGERY TONSILLECTOMY Social History Tobacco Use Types Packs/Day Years Used Date Smoking Tobacco: Never Smokeless Tobacco: Never Tobacco Cessation:Counseling Given: Not Answered Alcohol Use Standard Drinks/Week Comments Yes 40 (1 standard drink = 0.6 oz pu re alcohol) Overall Financial Resource Strain (CARDIA) Answe r Date Recorded How hard is it for you to pa y for the very basics like food, housing, medical care, and heating? Not hard at all 11/05/2022 PHQ-2 Answer Date Recorded PHQ-2 Total Score 0 11/05/2022 Exercise Vital Sign Answer Date Recorde d On average, how many days pe r week do you engage in moderate to strenuous exercise (like a brisk walk)? 5 days 11/05/2022 On average, how many minutes do you engage in exercise at this level? 60 min 11/05/2022 Hunger Vital Sign Answer Date Recorded Within the past 12 months, y ou worried that your food would run out before you got the money to buy more. Never true 11/06/19 23 Within the past 12 months, t he food you bought just didn't last and you didn't have money to get more. Never true 11/05/2022 PRAPARE - Transportation Answer Date Re corded In the past 12 months, has l ack of transportation kept you from medical appointments or from getting medications? No 10/12 In the past 12 months, has l ack of transportation kept you from meetings, work, or from getting things needed for daily living? No 11/05/2022 Sex and Gender Information Value Date Recorded Sex Assigned at Not on file Legal Sex Male 8:42 AM EDT Gender Identity Not on file Sexual Orientation Not on file Obstetrics History Last Filed Vital Signs Vital Sign Reading Time Taken Comments Blood Pressure 149/80 11/07/2022 8:30 AM EDT Pulse 59 11/07/2022 8:30 AM EDT Temperature 36.4 C (97.5 F) 11/07/2022 8:30 AM EDT Respiratory Rate 16 11/07/2022 8:30 AM EDT Oxygen Saturation 100% 11/07/2022 8:30 AM EDT Inhaled Oxygen Concentration - - Weight 99.2 kg (218 lb 11.1 oz) 11/07/2022 6:41 AM EDT Height - - Body Mass Index - - Plan of Treatment Health Maintenance Due Date Last Done Comments Wellness Exam Medicare 1956 DTaP/TDaP/Td (1 - Tdap) 1972 Cologuard 1998 Colon Cancer Screening 1998 Colonoscopy 1998 FIT 1998 Sigmoidoscopy 1998 Virtual Colonography 1998 Pneumococcal Vaccine 50+ (1 of 1 - PCV) 11/30/2003 Zoster (1 of 2) 11/30/2003 COVID-19 Vaccine (2023-2 5 season) 2024 Influenza Vaccine (Season Ended) 2025 04/13/2020, 03/06/2020, 04/24/2018 Hepatitis C Screening Completed 11/05/2022 Hepatitis B Vaccine Aged Out No longe r eligible based on patient's age to complete this topic Meningococcal B Vaccine Aged Out No l onger eligible based on patient's age to complete this topic Procedures Procedure Name Priority Date/Time Associated Diagnosis Comments ACUTE HEPATITIS PANEL Routine 11/05/2022 4:47 PM EDT from Last 3 Months or Most Recently Relevant to Health Maintenance Results * ACUTE HEPATITIS PANEL (11/05/2022 4:47 PM EDT) Hep Bs Ag Non-Reacti ve Non-Reacti ve 11/05/2022 6:36 PM EDT [facility] Hep B Core IgM Non-Reacti ve Non-Reacti ve 11/05/2022 6:36 PM EDT [facility] Hep A IgM Non-Reacti ve Non-Reacti ve 11/05/2022 6:36 PM EDT [facility] Hep C Ab Non-Reacti ve Non-Reacti ve 11/05/2022 6:36 PM EDT [facility] Blood VENOUS BLOOD / Unknown Butterfly / Unknown 11/05/2022 4:47 PM EDT 11/05/2022 5:09 PM EDT us Chiquis Briseno MD CHEMISTRY ORDERABLES Fin al Result [facility] [employer] [address] [facility] , [place] [address] from Last 3 Months or Most Recently Relevant to Health Maintenance Insurance MEDICARE PPO MR [employer] MEDICARE PPO MR Advance Directives For more information, please contact: [phone] * Full Code (Latest Code Status on File) Date Activated Date Inactivated Comments 11/04/2022 7:12 PM 11/07/2022 8:29 PM
--- OUTSIDE RECORDS SUMMARY | 2024-11-16 12:53 | XMS_ITS | Continuity of Care Document ---
Author Organization [facility] Clinsukhwinder [facility] Address [address] [place] [address] Assessment No assessment recorded. Plan of Treatment Reminders Order Date Submit Date Provider Last Modified By Organization Details Last Modified Time Details Appointments None recorded. Lab surgical pathology study - Excision: Biopsy proven SCCIS 2024 025 [facility], [address] [place] [address], [phone], 13:53:24 Referral None recorded. Procedures None recorded. Surgeries None recorded. Imaging None recorded. Medication Orders None recorded. Patient TargetsNo targets recorded. Patient InstructionsNo instructions recorded. Reason for Referral None Reported. Procedures Surgical History Date Name Laterality Status Provider Name and Address Organization Details Recorded Time 10/02/2024 DAK - Lesion Excision, [place]; trunk,arms, legs completed LANDEN LATHAM JR, MD [address] [place] [address], [phone], [facility] 10/05/2024 11:14:29 Imaging Results None recorded. Procedure Notes None recorded. Medical Equipment None Reported. Medications Name Sig Start Date Stop Date Status Note LastModified by Organization Details LastModified Time losartan 50 mg tablet TAKE 1 TABLET BY MOUTH ONCE DAILY active Not Available Not Available No t Available furosemide 40 mg tablet TAKE 1 TABLET BY MOUTH ONCE DAILY active Not Available Not Available No t Available ammonium lactate 12 % lotion APPLY LOTION TOPICALLY ONCE DAILY TO ARMS, LEGS AND TRUNK. AVOID SENSITIVE AREAS. active Not Available Not Available No t Available fluticason e propionate 0.05 % topical cream APPLY TO AFFECTED AREAS ON FACE TWICE DAILY FOR TWO WEEKS. STOP FOR ONE WEEK AND REPEAT NEEDED FOR FLARES active Not Available Not Available No t Available fluorourac il 5 % topical cream APPLY CREAM TOPICALLY TWICE DAILY FOR 2 WEEKS TO LEFT FOREARM AND LEFT HAND active Not Available Not Available No t Available betamethas one valerate 0.1 % lotion APPLY LOTION EXTERNALL Y ONCE DAILY TO SCALP FOR 1 WEEK ON AND 1 WEEK OFF NEEDED FOR ITCH/SCAL E active Not Available Not Available No t Available Topicort 0.25 % topical cream Two times a day 2007 active Instructi ons: to affected areas on feet and ankles bid x 2 weeks then off x 1 week and repeat prn;Frequ ency: bid;Medic ation Descripti on: desoximet asone topical; Dosage:as directed; Route:top ical; refills:2 ; Quantity: 30gms cream Not Available Not Available Not Available metoprolol succinate ER 25 mg tablet,ext ended release 24 hr TAKE 1 TABLET BY MOUTH ONCE DAILY FOR HEART DISEASE active Not Available Not Available No t Available clobetasol 0.05 % scalp solution APPLY SOLUTION TOPICALLY TO SCALP TWICE DAILY FOR 14 DAYS, TAKE 1 WEEK BREAK, THEN REPEAT NEEDED active Not Available Not Available No t Available eplerenone 25 mg tablet TAKE 1 TABLET BY MOUTH ONCE DAILY active Not Available Not Available No t Available ezetimibe 10 mg tablet TAKE 1 TABLET BY MOUTH ONCE DAILY active Not Available Not Available No t Available rosuvastat in 40 mg tablet TAKE 1 TABLET BY MOUTH ONCE DAILY active Not Available Not Available No t Available ranolazine ER 500 mg tablet,ext ended release,12 hr TAKE 1 TABLET BY MOUTH TWICE DAILY active Not Available Not Available No t Available fenofibric acid (choline) 45 mg capsule,de layed release TAKE 1 CAPSULE BY MOUTH ONCE DAILY active Not Available Not Available No t Available Vitals Date Recorded Systolic blood pressure Diastolic blood pressure Provider Name and Address Organization Details Last Updated DateTime 10/02/2024 121 mm[Hg] 78 mm[Hg] Nafisa Schneider [facility] 10/02/2024 13:02:49 Date Recorded Systolic blood pressure Diastolic blood pressure Provider Name and Address Organization Details Last Updated DateTime 10/02/2024 110 mm[Hg] 72 mm[Hg] Chica Mir [facility] 10/02/2024 11:57:05 Social History None recorded. Functional Status None recorded. Mental Status None recorded. Family History Nothing Reported. Medical History No medical history recorded. 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 8197868803 18119 D04.62 Health Concerns Section Related Observation LastModified by Organization Detai ls LastModified Time None Recorded Concern Status LastModified by Organization Details LastModified Time None Recorded Payers Encounter Date Sequence Insurance Name Policy Number Policy Constantino Covered Member ID Constantino Member ID Guarantor Name 10/02/2024 1 [employer] (MEDICARE REPLACEMENT/A DVANTAGE - PPO) Landen Morales [id number] Landen Morales Notes Date Note Type Note Provider Name and Address Organization Details Recorded Time 10/02/2024 text/html Patient presents today for an excision to right dorsal forearm for treatment of SCCIS. PREOP CHECKLIST1. Pacemaker or Defibrillator? NO2. Artificial heart valve or joints? NO3. Pt currently on antibiotic? NO4. History of bleeding, infection or complications with other surgeries? NO5. Med history, medications and allergies reviewed? YES6. Has pt taken Immunosuppressive meds (imuran, cyclosporine, mycophenolate, chemo etc.?, or steroids in last 2 weeks? NO7. Prearranged Closure? NO8. Have a ride home? NO LANDEN LATHAM JR, MD [address] [place], [address], [facility] 10/05/2024 11:14:37
--- OUTSIDE RECORDS SUMMARY | 2024-11-16 12:53 | XMS_ITS | Data Portability ---
Author Organization [facility] NATE IversonS [place] CLOSED Address [address] [place] [address] Assessment No assessment recorded. Plan of Treatment Reminders Order Date Submit Date Provider Last Modified By Organization Details Last Modified Time Details Appointments None recorded. Lab surgical pathology study - Excision: Biopsy proven SCCIS 2024 025 [facility], [facility] [place], [phone], 5 13:53:24 Referral None recorded. Procedures None recorded. Surgeries None recorded. Imaging None recorded. Medication Orders None recorded. Patient TargetsNo targets recorded. Patient InstructionsNo instructions recorded. Reason for Referral None Reported. Results Created Date Observation Date Name Description Value Unit Range Abnormal Flag Note LastModifiedBy Organization Detail LastModifiedTime 10/03/1910/02/2024 SURGI CARMELLA surgical SEE BELOW abnormal [place] topat holog y Repor t NAME: RADHA ROME EL PATH: [id number] PROCE DURE DATE: 10/02 SIGNO UT DATE: 10/04 Copy to: Diagn osis: Left Dista l Forea rm - REPAR ATIVE REACT ION FOLLO WING PREVI OUS PROCE DURE Comme nt: Subcu taneo us fat is ident ified . SOURC E OF SPECI MEN: SKIN, L DISTA L FOREA RM CLINI CARMELLA INFOR MATIO N: BX PROVE N: SCCis . Gross Descr iptio n: Recei ronit times one woods ellip tical -shap ed excis ion which measu red 52 x 21 x 3 mm. Speci men is inked with blue dye for moises ns and seria lly secti oned (x15) . All is submi tted in four casse ttes. Micro scopi c Descr iptio n: Focal granu latio n tissu e gallo the site of the previ ous proce dure. These is no evide nce of resid ual neopl asm. PARISH VALLECILLO MD Caryn d Out Date: 10/04 13:53 1 Not Available [facility] [address] [place], [address], 10/04/2024 13:53:24 Result Notes None recorded. Procedures Surgical History Date Name Laterality Status Provider Name and Address Organization Details Recorded Time 10/02/2024 DAK - [place]ision[place]; trunk,arms, legs completed LANDEN LATHAM JR, MD [address] [place] [address], [phone], [facility] - [facility] 10/05/2024 11:14:29 Imaging Results None recorded. Procedure [...] DateTime 10/02/2024 121 mm[Hg] 78 mm[Hg] Nafisa [facility] 10/02/2024 13:02:49 Date Recorded Systolic blood pressure Diastolic blood pressure Provider Name and Address Organization Details Last Updated DateTime 10/02/2024 110 mm[Hg] 72 mm[Hg] [facility] 10/02/2024 11:57:05 Social History None recorded. Functional Status None recorded. Mental Status None recorded. Family History Nothing Reported. Medical History No medical history recorded. 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 NO LANDEN LATHAM JR, MD [facility] [place], [address], [facility] 10/05/2024 11:14:37
== END 2024-11-15 23:59 | disposition home or self-care (01) ==
LOC: LAB.DROPOF 11-16 12:51
PROVIDERS: PCP Internal Medicine; Visit Provider Internal Medicine
DX: Z00.00 Encounter for general adult medical examination without abnormal findings (principal); Z11.59 Encounter for screening for other viral diseases; Z13.220 Encounter for screening for lipoid disorders; Z11.4 Encounter for screening for human immunodeficiency virus [HIV]; Z13.1 Encounter for screening for diabetes mellitus; I25.10 Atherosclerotic heart disease of native coronary artery without angina pectoris
CPT/HCPCS: 80053; 80061; 83036; 85025; 86803; 87389

== ENCOUNTER 2025-01-08 10:05 | Outpatient (CLI) | payer MEDICARE, SELFPAY ==
--- OUTSIDE RECORDS SUMMARY | 2023-07-04 11:29 | XMS_ITS | Continuity of Care Document ---
Author Organization [facility] Address [address] [place] [address] Phone Care Team Providers Care Compensation Adjuster Name Role Phone Yayo Mueller MD Unavailable [...] Provider Providers Copied on Encounter [facility] [place], [facility] [place], [address], [place] tel:[phone] [facility] No Information 4 Ervin Zee. [address] [place] [address], [address], . tel:[phone] Referring Provider: Yayo Mueller, [address] [place] [address], [facility]. tel:[phone] Office/outpa [facility]ient visit,[facility], [address] [place] [address], [address], [place] tel:[phone] [facility] Radiculopathy, lumbar regionSpondylo lysis, lumbar region 3 Jose Sanjuana. [address] [place] [address], [address], [place]. tel:[phone] Referring Provider: Yayo Mueller, [address] [place] [address], [facility]. tel:[phone] [facility], [address] [place] [address], [address], [place] tel:[phone] [facility] Radiculopathy, lumbar region 3 Shima Lyndon. [address] [place], [place], [id number], [place]. tel:[phone] Referring Provider: Yayo Mueller, [address] [place] [address], [facility]. tel:[phone] Office/outpa tient visit,[facility], [address] [place] [address], [address], [place] tel:[phone] [facility] Spondylolysis, lumbar regionRadiculo evelyn, lumbar region 3 Jose Sanjuana. [address] [place] [address], [address], [place]. tel:[phone] Referring Provider: Yayo Mueller, [address] [place] [address], [facility]. tel:[phone] Office/outpa [facility]ient visit,[facility], [address] [place], [address], tel:[phone] [facility] Spondylolysis, lumbar region 3 Ervin Zee. [address] [place] [address], [facility], . tel:[phone] Referring Provider: Yayo Mueller, [address] [place] [address]. tel:[phone] [facility], [address] [place], [place], [facility], tel:[phone] [place] [address] No Information 3 Ervin Zee. [address] [place] [address], [facility], . tel:[phone] Referring Provider: Yayo Mueller, [address] [place] [address]. tel:[phone] [facility], [address] [place], [place], [facility], tel:[phone] [place] [address] No Information 3 Ervin Zee. [address] [place] [address], [facility], . tel:[phone] Referring Provider: Yayo Mueller, [address] [place] [address]. tel:[phone] Office/outpa tient visit,[facility], [address] [place] [address], [facility], tel:[phone] [facility] Spondylolysis, lumbar regionBilatera l primary osteoarthritis of hip 3 Ervin Zee. [address] [place] [address], . tel:[phone] Referring Provider: Yayo Mueller, [address] [place] [address]. tel:[phone] Family History Family Member Type Diagnosis Age [...] Cancer Payers Payer name Insurance type Covered constitution party ID Cris moran(s) [employer] Medicare - [id number] Social History Type Description Quantity Date Captured [...]
--- OUTSIDE RECORDS SUMMARY | 2025-01-09 12:40 | XMS_ITS | Clinical Summary ---
Author Organization [facility] Address [address] [place] [address] Care Team Providers Care Zinc Plating Machine Operator Name Role Phone Jr Ramesh Adame APRN Primary Care Prov ider Allergies No known active allergies Medications Choline Fenofibrate (Fenofibric Acid) 45 MG capsule delayed-release TAKE 1 CAPSULE BY MOUTH ONCE DAILY FOR HIGH CHOLESTEROL 4 Active eplerenone (INSPRA) 25 MG tablet Take 1 tablet by mouth Daily. 4 Active ezetimibe (ZETIA) 10 MG tablet Take 1 tablet by mouth Daily. 4 Active furosemide (LASIX) 40 MG tablet Take 1 tablet by mouth Daily. 4 Active losartan (COZAAR) 50 MG tablet Take 1 tablet by mouth Daily. 4 Active metoprolol succinate XL (TOPROL-XL) 25 MG 24 hr tablet TAKE 1 TABLET BY MOUTH ONCE DAILY FOR HEART DISEASE 4 Active ranolazine (RANEXA) 500 MG 12 hr tablet Take 1 tablet by mouth Every 12 (Twelve) Hours. 4 Active rosuvastatin (CRESTOR) 40 MG tablet Take 1 tablet by mouth Daily. 4 Active Active Problems Problem Noted Date Diagnosed Date Arthritis of carpometacarpal (CMC) joint of thum b 05/15/2024 Social History Tobacco Use Types Packs/Day Years Used Date Smoking Tobacco: Former Cigarettes Q uit: 2017 Smokeless Tobacco: Never Alcohol Use Standard Drinks/Week Comments Yes 0 (1 standard drink = 0.6 oz pur e alcohol) Sex and Gender Information Value Date Recorded Sex Assigned at Not on file Legal Sex Male 10:00 AM EDT Gender Identity Not on file Sexual Orientation Not on file Last Filed Vital Signs Vital Sign Reading Time Taken Comments Blood Pressure 120/82 05/15/2024 9:32 AM EST Pulse 65 03/15/2024 2:01 PM EDT Temperature 36.8 C (98.2 F) 03/15/2024 2:01 PM EDT Respiratory Rate - - Oxygen Saturation 95% 03/15/2024 2:01 PM EDT Inhaled Oxygen Concentration - - Weight 104 kg (228 lb 8 oz) 05/15/2024 9:[address] Height 175.3 cm (5' 9 ) 05/15/2024 9:32 AM EST Body Mass Index 33.74 05/15/2024 9:32 AM EST Plan of Treatment Health Maintenance Due Date Last Done Comments TDAP/TD VACCINES (1 - Tdap) 1972 COLOGUARD 1998 COLON CANCER SCREENING 5 YEA R SIGMOIDOSCOPY 1998 COLONOSCOPY 1998 [address] CANCER SCREENING 1998 [address] COLONOGRAPHY 1998 FECAL OCCULT BLOOD TEST 1998 FIT Testing (1 year) 1998 ZOSTER VACCINE (1 of 2) 11/30/2003 COVID-19 Vaccine ( - 2023-2 5 season) 2024 ANNUAL WELLNESS VISIT 03/09/2024 INFLUENZA VACCINE 03/13/2025 05/19/2023, , 03/06/2020, Additional history exists HEPATITIS C SCREENING Completed 11/05/2022 Pneumococcal Vaccine 50+ Completed 05/19/2023 AAA SCREEN ONCE Completed 03/30/2024, 03/05/2024 Procedures Procedure Name Priority Date/Time Associated Diagnosis Comments CT ABDOMEN PELVIS W CONTRAST Routine 03/30/2024 Left upper quadrant abdominal pain from Last 3 Months or Most Recently Relevant to Health Maintenance Results * CT Abdomen Pelvis With Contrast (03/30/2024) Anatomical Region Laterality Modality Abdomen, Pelvis N/A Computed Tomogra phy us Erik Alcantara MD IMG CT ORDERABLES Final Resu lt from Last 3 Months or Most Recently Relevant to Health Maintenance Insurance Care Teams Zinc Plating Machine Operator Relationship Specialty Start Date End Date Jr Ramesh Adame APRN [address] [place] [address] PCP - General Nurse Practitioner 02/27/24
--- OUTSIDE RECORDS SUMMARY | 2025-01-09 12:41 | XMS_ITS | Clinical Summary ---
Author Organization [facility] Address [address] [place] [phone] Phone Care Team Providers Care Lead Infrastructure Architect Name Role Phone Unavailable Primary Care Provider [...] Diagnosed Date Coronary artery disease invo lving [place] coronary artery of [place] heart without angina pectoris 11/05/2022 HLD (hyperlipidemia) [...] Vaccine (2023-2 5 season) 2024 Influenza Vaccine (#1) 2025 0, 03/06/2020, 04/24/2018 Hepatitis C Screening Completed 11/05/2022 [...] MD CHEMISTRY ORDERABLES Fin al Result [facility]REFERRED [employer] [address] [facility] [facility] , [place] [address] from Last 3 Months or Most Recently Relevant to Health Maintenance Insurance [employer] MEDICARE PPO MR [employer] MEDICARE PPO MR Advance Directives For more information, please contact: [phone] * Full Code (Latest Code Status on File) Date Activated Date Inactivated Comments 11/04/2022 7:12 PM 11/07/2022 8:29 PM
== END 2025-01-08 23:59 | disposition home or self-care (01) ==
LOC: LAB.DROPOF 01-09 12:33
PROVIDERS: PCP Nurse Practitioner; Visit Provider Nurse Practitioner
DX: B35.1 Tinea unguium (principal)
CPT/HCPCS: 87101; 87220